=== PATIENT | female | born 1940 ===

== ENCOUNTER 2017-01-19 15:06 | Emergency (ER) | payer MEDICARE, OTHER ==
[2017-01-19 15:06] VITALS: BMI 38.9
[2017-01-19 15:15] VITALS: BP 114/56; PULSE 99; RESP 16; TEMP 98; O2SAT 100
[2017-01-19] MEDS ORDERED: Silver Sulfadiazine 1% CREAM (50 gm) TOP STA (15:36)
[2017-01-19] MEDS ORDERED: Silver Sulfadiazine 1% CREAM (50 gm) ONE (15:41)
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
== END 2017-01-19 15:59 | disposition home or self-care (01) ==
LOC: H.ER 15:06
DX: T23.152A Burn of first degree of left palm, initial encounter (principal); X15.0XXA Contact with hot stove (kitchen), initial encounter; Y93.G9 Activity, other involving cooking and grilling; Y92.000 Kitchen of unspecified non-institutional (private) residence as the place of occurrence of the external cause

== ENCOUNTER 2017-07-06 15:11 | Inpatient (IN) | payer MEDICARE, OTHER ==
[2017-07-06 15:11] VITALS: BMI 38.9
[2017-07-06] MEDS ORDERED: Albuterol-Ipratrop 3 mg / 0.5 (3 ml) UD INH STA (15:53)
--- NOTE | 2017-07-06 16:23 | ED PDOC ---
HPI: CCC, URI, Sore Throat Time Seen by Provider: 07/06/17 15:35 Chief Complaint (Nursing): Flu-like Symptoms Chief Complaint (Provider): Cough History Per: Patient History/Exam Limitations: no limitations Onset/Duration Of Symptoms: Days (x 2) Current Symptoms Are (Timing): Still Present Additional Complaint(s): Dafne is a 77 y/o female who presents to the ED complaining of dry cough, minimal runny nose, subjective fever, chills, body aches, headache, malaise, and fatigue that started on Friday. She has a history of asthma and reports using albuterol and tylenol for symptoms PMD: Dr. Panda Past Medical History Reviewed: Historical Data, Nursing Documentation, Vital Signs Vital Signs: Last Vital Signs Temp 98.9 F 07/06/17 15:17 Pulse 96 H 07/06/17 15:17 Resp 16 07/06/17 15:17 BP 149/91 H 07/06/17 15:17 Pulse Ox 94 L 07/06/17 20:10 - Medical History PMH: Arthritis, Asthma, Cardia Arrhythmia, Diabetes, Gastritis, HTN, Hypercholesterolemia, Rheumatoid Arthritis, Sleep Apnea (USES CPAP) Denies: HIV, Chronic Kidney Disease - Surgical History Surgical History: Appendectomy, Coronary Stent (11/2006 & 2009) Other surgeries: left partial mastectomy - Family History Family History: States: Diabetes, Hypertension - Social History Current smoker - smoking cessation education provided: No Alcohol: None Drugs: Denies - Immunization History Hx Tetanus Toxoid Vaccination: Yes (2 years ago) Hx Influenza Vaccination: No Hx Pneumococcal Vaccination: Yes (2 years) - Home Medications Home Medications: Ambulatory Orders Medication Instructions Recorded Aspirin [Ecotrin] 81 mg PO DAILY #0 tabec 01/13/16 Ciclopirox 0.77% [Loprox 0.77%] 1 appl TD BID #0 tube 01/13/16 Enalapril Maleate [Vasotec] 10 mg PO DAILY #0 tab 01/13/16 Glimepiride [amaRYL] 4 mg PO BID #0 tab 01/13/16 Insulin Aspart [Novolog] 60 unit SQ TID #0 cartridge 01/13/16 Insulin Detemir [Levemir] 80 units SC HS #0 vial 01/13/16 Montelukast [Singulair] 10 mg PO HS #0 tab 01/13/16 Albuterol 0.042% [Albuterol 0.042% 1 mg 04/03/16 Inhal Carlie (1.25mg/3ml) UD] Atenolol [Tenormin] 25 mg PO DAILY 04/03/16 Insulin Glargine, Recombina 80 units SQ DAILY 04/03/16 [Lantus] Insulin Lispro [humALOG] 40 units SQ TID 04/03/16 Lansoprazole [Prevacid] 30 mg PO 04/03/16 Cephalexin [Keflex] 1 tab PO TID #21 capsule 08/18/16 Lansoprazole [Prevacid] 30 mg PO DAILY 08/18/16 Silver Sulfadiazine [Silvadene] 25 gm TP DAILY #1 cream..g. 01/19/17 - Allergies Allergies/Adverse Reactions: Allergies Allergy/AdvReac Type Severity Reaction Status Date / Time iodine AdvReac RASH Verified 01/11/16 11:17 Review of Systems ROS Statement: Except As Marked, All Systems Reviewed And Found Negative Constitutional: Positive for: Fever (subjective), Chills, Weakness, Malaise, Other (fatigue, body aches) ENT: Positive for: Nose Discharge Respiratory: Positive for: Cough (dry) Neurological: Positive for: Headache Physical Exam - Reviewed Nursing Documentation Reviewed: Yes Vital Signs Reviewed: Yes - Physical Exam Appears: Positive for: Non-toxic, In Acute Distress Head Exam: Positive for: ATRAUMATIC, NORMOCEPHALIC Skin: Positive for: Warm, Dry Eye Exam: Positive for: EOMI ENT: Positive for: Other (dry mucus membranes). Negative for: Nasal Congestion , Pharyngeal Erythema, Tonsillar Exudate Neck: Positive for: Painless ROM, Supple Cardiovascular/Chest: Positive for: Regular Rate, Rhythm, Chest Non Tender. Negative for: Murmur Respiratory: Positive for: Wheezing, Respiratory Distress. Negative for: Rales , Rhonchi Gastrointestinal/Abdominal: Positive for: Soft. Negative for: Tenderness Back: Positive for: Normal Inspection. Negative for: Decreased ROM Extremity: Positive for: Normal ROM. Negative for: Pedal Edema, Deformity Lymphatic: Negative for: Adenopathy Neurologic/Psych: Positive for: Alert, Mood/Affect (anxious affect). Negative for: Motor/Sensory Deficits - Laboratory Results Result Diagrams: 07/06/17 16:33 07/06/17 16:33 - ECG O2 Sat by Pulse Oximetry: 94 (RA) Pulse Ox Interpretation: Normal Medical Decision Making Medical Decision Making: Time: 15:52 Initial Impression: Influenza-like symptoms, asthma exacerbation Differentials include pneumonia, bronchitis, viral syndrome, URI Initial Plan: --CMP --CBC --Chest XR --Albuterol --Solu-Medrol --Tamiflu --Blood Culture --Blood Glucose --Flu Swab Time: 16:37 CHEST XR FINDINGS: LUNGS: Mild bibasilar atelectasis. PLEURA: No significant pleural effusion identified. No pneumothorax apparent. CARDIOVASCULAR: Cardiomegaly. OSSEOUS STRUCTURES: Mild moderate multilevel no degenerative spondylosis of the thoracic spine VISUALIZED UPPER ABDOMEN: Normal. OTHER FINDINGS: Metallic clips left axillary region consistent with prior lymph node dissection again noted. IMPRESSION: No active disease. Time: 20:17 --Patient reports feeling a little better after tx. Continues to have diffuse wheeze, low peak flow, and hypoxia. --To be hospitalized for status asthmaticus --Discussed with Dr. Rivera, hospitalist, for patient's PMD Dr. Panda Scribe Attestation: Documented by Brad Lopez, acting as a scribe for Rachel Olivo MD Provider Scribe Attestation: All medical record entries made by the Scribe were at my direction and personally dictated by me. I have reviewed the chart and agree that the record accurately reflects my personal performance of the history, physical exam, medical decision making, and the department course for this patient. I have also personally directed, reviewed, and agree with the discharge instructions and disposition. Disposition - Clinical Impression Clinical Impression: Influenza-like symptoms, Asthma exacerbation - Patient ED Disposition Is Patient to be Admitted: Yes Discussed With : Maggi Rivera Doctor Will See Patient In The: Hospital Counseled Patient/Family Regarding: Studies Performed, Diagnosis, Need For Followup, Rx Given - Disposition Disposition Time: 20:17 - Pt Status Changed To: Hospital Disposition Of: Inpatient - Admit Certification Admit to Inpatient:: After my assessment, the patient will require hospitalization for at least two midnights. This is because of the severity of symptoms shown, intensity of services needed, and/or the medical risk in this patient being treated as an outpatient.
--- NOTE | 2017-07-06 16:39 | RAD ---
HISTORY: cough fever COMPARISON: Comparison chest dated 01/11/2016 TECHNIQUE: Chest PA and lateral FINDINGS: LUNGS: Mild bibasilar atelectasis. PLEURA: No significant pleural effusion identified. No pneumothorax apparent. CARDIOVASCULAR: Cardiomegaly. OSSEOUS STRUCTURES: Mild moderate multilevel no degenerative spondylosis of the thoracic spine VISUALIZED UPPER ABDOMEN: Normal. OTHER FINDINGS: Metallic clips left axillary region consistent with prior lymph node dissection again noted. IMPRESSION: No active disease.
[2017-07-06 16:53] LABS: BASO # 0.1 K/uL (0.0-0.2); BASO % 1.2 % (0.0-2.0); EOS % 0.1 % (0.0-4.0); LYMPH # 0.6 K/uL (1.0-4.3); MEAN CELL VOLUME 89.8 fl (81.0-99.0); MEAN CORPUSCULAR HEMOGLOBIN 30.6 pg (27.0-31.0); MEAN PLATELET VOLUME 9.1 fl (7.2-11.7); MONO % 19.5 % (0.0-10.0); NEUT # 3.5 K/uL (1.8-7.0); NEUT % 67.2 % (50.0-75.0); NRBC % 0.1 % (0.0-0.0); RBC 4.57 Mil/uL (3.80-5.20); RED CELL DISTRIBUTION WIDTH 13.7 % (11.5-14.5); WHITE BLOOD COUNT 5.2 K/uL (4.8-10.8)
[2017-07-06] MEDS ORDERED: Albuterol-Ipratrop 3 mg / 0.5 (3 ml) UD ONE ×2 (17:04→17:40)
[2017-07-06 17:12] LABS: ALBUMIN 3.8 g/dL (3.5-5.0); ALT/SGPT 37 U/L (9-52); AST/SGOT 35 U/L (14-36); BLOOD UREA NITROGEN 15 mg/dl (7-17); CALCIUM 9.4 mg/dL (8.4-10.2); GFR AFRICAN-AMERICAN > 60; GFR NON-AFRICAN AMERICAN > 60
[2017-07-06] MEDS ORDERED: Magnesium Sulfate 2 gm/50 ml 2 GM/50 ML BAG IVPB ONE (20:11)
--- NOTE | 2017-07-06 20:19 | CP.PCM.HP ---
History of Present Illness - History of Present Illness History of Present Illness: CC: Asthma exacerbation, not resolving with nebs/steroids HPI: This is a 77 y/o female with MHx significant for asthma, CAD, DM2, and HTN among other medical conditions who comes in with 2-3 days of URTI symptoms and exacerbation of her asthma. States symptoms started Friday with f/c, CHAVEZ, malaise /fatigue. She does not have bodyaches above her baseline at this time. She tried to use her inhaler at home, but it did not fully relieve her symptoms, so she came in. Arian CP. PCP: Farzad ROS: 14 systems reviewed, negative other than HPI MHx: Asthma, CAD, HTN, DM2, SARAI; L breast cancer in past SHx: L breast mastectomy Allergies: Iodine? Medications: Pending confirmation Family Hx: Reviewed, no relevant findings Social Hx: Lives alone, no tobocco, no EtOH Surrogate: Son, info on chart Present on Admission - Present on Admission Any Indicators Present on Admission: No Past Patient History - Infectious Disease Hx of Infectious Diseases: None - Tetanus Immunizations Tetanus Immunization: Unknown - Past Medical History & Family History Past Medical History?: Yes - Past Social History Alcohol: None Drugs: Denies - CARDIAC Hx Cardia Arrhythmia: Yes Hx Hypercholesterolemia: Yes Hx Hypertension: Yes - PULMONARY Hx Asthma: Yes Hx Sleep Apnea: Yes (USES CPAP) - NEUROLOGICAL Hx Neurological Disorder: No - HEENT Hx HEENT Problems: Yes Hx Cataracts: Yes - RENAL Hx Chronic Kidney Disease: No - HEMATOLOGICAL/ONCOLOGICAL Hx Human Immunodeficiency Virus (HIV): No - INTEGUMENTARY Hx Dermatological Problems: No - MUSCULOSKELETAL/RHEUMATOLOGICAL Hx Arthritis: Yes Hx Rheumatoid Arthritis: Yes - GASTROINTESTINAL Hx Gastritis: Yes - GENITOURINARY/GYNECOLOGICAL Hx Genitourinary Disorders: No - PSYCHIATRIC Hx Emotional Abuse: No Hx Physical Abuse: No Hx Substance Use: No - SURGICAL HISTORY Hx Appendectomy: Yes Hx Coronary Stent: Yes (11/2006 & 2009) - ANESTHESIA Hx Anesthesia: Yes Hx Anesthesia Reactions: No Hx Malignant Hyperthermia: No Meds Allergies/Adverse Reactions: Allergies Allergy/AdvReac Type Severity Reaction Status Date / Time iodine AdvReac RASH Verified 01/11/16 11:17 Physical Exam - Constitutional Appears: No Acute Distress - Head Exam Head Exam: ATRAUMATIC, NORMOCEPHALIC - Eye Exam Eye Exam: EOMI, PERRL - ENT Exam ENT Exam: Mucous Membranes Moist - Neck Exam Neck exam: Positive for: Full Rom - Respiratory Exam Respiratory Exam: Decreased Breath Sounds, Wheezes - Cardiovascular Exam Cardiovascular Exam: REGULAR RHYTHM, +S1, +S2 - GI/Abdominal Exam GI & Abdominal Exam: Normal Bowel Sounds, Soft - Extremities Exam Extremities exam: Positive for: full ROM, normal inspection - Neurological Exam Neurological exam: Alert, CN II-XII Intact, Oriented x3 - Psychiatric Exam Psychiatric exam: Normal Affect, Normal Mood - Skin Skin Exam: Dry, Warm Results - Vital Signs Recent Vital Signs: Last Vital Signs Temp 98.9 F 07/06/17 15:17 Pulse 96 H 07/06/17 15:17 Resp 16 07/06/17 15:17 BP 149/91 H 07/06/17 15:17 Pulse Ox 94 L 07/06/17 20:10 - Labs Result Diagrams: 07/06/17 16:33 07/06/17 16:33 Labs: Laboratory Results - last 24 hr 07/06/17 07/06/17 07/06/17 16:22 16:33 16:33 WBC 5.2 RBC 4.57 Hgb 14.0 Hct 41.0 MCV 89.8 MCH 30.6 MCHC 34.0 RDW 13.7 Plt Count 184 MPV 9.1 Neut % (Auto) 67.2 Lymph % (Auto) 12.0 L Gonzales % (Auto) 19.5 H Eos % (Auto) 0.1 Baso % (Auto) 1.2 Neut # 3.5 Lymph # 0.6 L Gonzales # 1.0 H Eos # 0.0 Baso # 0.1 Sodium 141 Potassium 3.9 Chloride 100 Carbon Dioxide 30 Anion Gap 15 BUN 15 Creatinine 0.9 Est GFR ( Amer) > 60 Est GFR (Non-Af Amer) > 60 POC Glucose (mg/dL) 149 H Random Glucose 165 H Calcium 9.4 Total Bilirubin 0.5 AST 35 ALT 37 Alkaline Phosphatase 70 Total Protein 7.5 Albumin 3.8 Globulin 3.7 Albumin/Globulin Ratio 1.0 Influenza Typ A,B (EIA) 07/06/17 16:33 WBC RBC Hgb Hct MCV MCH MCHC RDW Plt Count MPV Neut % (Auto) Lymph % (Auto) Gonzales % (Auto) Eos % (Auto) Baso % (Auto) Neut # Lymph # Gonzales # Eos # Baso # Sodium Potassium Chloride Carbon Dioxide Anion Gap BUN Creatinine Est GFR ( Amer) Est GFR (Non-Af Amer) POC Glucose (mg/dL) Random Glucose Calcium Total Bilirubin AST ALT Alkaline Phosphatase Total Protein Albumin Globulin Albumin/Globulin Ratio Influenza Typ A,B (EIA) Negative for flu a/b - Imaging and Cardiology Chest x-ray Status: Image reviewed by me (poor inspiration, no obvious infiltrates) Assessment & Plan (1) Asthma exacerbation Assessment and Plan: 77 y/o female with multiple medical conditions presenting with asthma exacerbation not improved with outpatient treatment. 1) Asthma -Continue scheduled/PRN duonebs -Continue IV steroids for now, will attempt to move to PO by tmrw -No abx or tamiflu for now as no positive findings 2) DM2 -DM2 diet -Accuchecks ACSH, SSI -Will continue Levemir, but only 40 U until the 80 U dose is confirmed -Cont glimeperide PO 3) CAD, HTN -- cont home medications 4) DVT PPx -- SCDs for now Status: Acute (2) DVT prophylaxis Status: Acute (3) CAD (coronary artery disease) Status: Chronic (4) DM type 2 (diabetes mellitus, type 2) Status: Chronic (5) HTN (hypertension) Status: Chronic
[2017-07-06] MEDS ORDERED: Insulin Detemir 100 Units/ml Inj SC SCH (22:00)
[2017-07-07] MEDS: Insulin Lispro (humaLOG) 100 Units/ml Inj SC SCH ×7 (00:49→21:34)
[2017-07-07 06:07] LABS: HEMOGLOBIN 13.9 g/dL (12.0-16.0); MEAN CELL VOLUME 92.3 fl (81.0-99.0); MEAN CORPUSCULAR HEMOGLOBIN 30.5 pg (27.0-31.0); MEAN CORPUSCULAR HGB CONC 33.1 g/dL (33.0-37.0); RBC 4.55 Mil/uL (3.80-5.20); RED CELL DISTRIBUTION WIDTH 13.8 % (11.5-14.5); WHITE BLOOD COUNT 5.4 K/uL (4.8-10.8)
[2017-07-07 06:32] LABS: BLOOD UREA NITROGEN 21 mg/dl (7-17); CALCIUM 9.1 mg/dL (8.4-10.2); GFR AFRICAN-AMERICAN > 60; GFR NON-AFRICAN AMERICAN > 60
[2017-07-07] MEDS: Albuterol-Ipratrop 3 mg / 0.5 (3 ml) UD INH SCH ×4 (07:30→19:20)
--- NOTE | 2017-07-07 08:47 | CP.PCM.PN ---
Subjective - Date & Time of Evaluation Date of Evaluation: 07/07/17 Time of Evaluation: 08:00 - Subjective Subjective: Patient was seen and examined bedside.Complaining of wheezing and SOB , coughing spells and clear sputum production. With O2 Sat 92 % on 3 L O2 via NC and dyspnea with minimal activity. Afebrile BP 144/49 HR 76 Accu 493 Objective - Vital Signs/Intake and Output Vital Signs (last 24 hours): Temp Pulse Resp BP Pulse Ox 97.9 F 76 18 144/49 L 92 L 07/07/17 08:00 07/07/17 08:00 07/07/17 08:00 07/07/17 08:00 07/07/17 08:00 Intake and Output: 07/07/17 07/07/17 06:59 18:59 Intake Total 200 Balance 200 - Medications Medications: Current Medications Albuterol/Ipratropium (Duoneb 3 Mg/0.5 Mg (3 Ml) Ud) 3 ml INH RQID [facility] Last Admin: 07/07/17 07:30 Dose: 3 ml Albuterol/Ipratropium (Duoneb 3 Mg/0.5 Mg (3 Ml) Ud) 3 ml INH RQ6 PRN PRN Reason: Shortness of Breath Aspirin (Ecotrin) 81 mg PO DAILY [facility] Atenolol (Tenormin) 25 mg PO DAILY [facility] Enalapril Maleate (Vasotec) 10 mg PO DAILY [facility] Insulin Detemir (Levemir) 40 units SC [facility] Last Admin: 07/07/17 00:39 Dose: 40 units Insulin Human Lispro (Humalog) 0 units SC [facility] PRN Reason: Protocol Last Admin: 07/07/17 06:40 Dose: 10 units Montelukast Sodium (Singulair) 10 mg PO [facility] Last Admin: 07/07/17 00:39 Dose: 10 mg Pantoprazole Sodium (Protonix Ec Tab) 40 mg PO DAILY [facility] - Labs Labs: 07/07/17 04:30 07/07/17 04:30 - Constitutional Appears: Non-toxic, Other (overweight in mild respiratory distress ) - Head Exam Head Exam: ATRAUMATIC, NORMAL INSPECTION, NORMOCEPHALIC - Eye Exam Eye Exam: EOMI, Normal appearance, PERRL Pupil Exam: NORMAL ACCOMODATION - ENT Exam ENT Exam: Mucous Membranes Moist, Normal Exam - Neck Exam Neck Exam: Normal Inspection - Respiratory Exam Respiratory Exam: Accessory Muscle Use, Rhonchi, Wheezes, Respiratory Distress - Cardiovascular Exam Cardiovascular Exam: REGULAR RHYTHM, RRR, +S1, +S2. absent: JVD - GI/Abdominal Exam GI & Abdominal Exam: Soft, Normal Bowel Sounds. absent: Distended, Guarding, Tenderness, Rebound - Rectal Exam Rectal Exam: Deferred - Extremities Exam Extremities Exam: Full ROM, Normal Capillary Refill, Normal Inspection. absent : Calf Tenderness, Pedal Edema - Back Exam Back Exam: NORMAL INSPECTION - Neurological Exam Neurological Exam: Alert, Awake, CN II-XII Intact, Oriented x3 - Psychiatric Exam Psychiatric exam: Normal Affect, Normal Mood - Skin Skin Exam: Dry, Intact, Normal Color, Warm Assessment and Plan - Assessment and Plan (Free Text) Assessment: 77 y/o female with PMHx significant for asthma, CAD, DM2,breast CA s/p left mastectomy ,sleep apnea apnea on CPAP at night and HTN came in with 2-3 days of URTI symptoms and exacerbation of her asthma. States symptoms started Friday with f/c, CHAVEZ, malaise/fatigue. She does not have bodyaches above her baseline at this time. She tried to use her inhaler at home, but it did not fully relieve her symptoms, so she came in. Denies CP. Patient at present with dyspnea with minimal exertion,wheezing , coughing spells . O2 Sat 92 % on 3 L O2 via NC 1. Asthma exacerbation still with wheezing, rhonchi and coughing spells Continue O2 via NC Will start Solumedrol 40 mg IV Q8 Duonebs RTC will start zithromax IV Influenza test nefgative. Will d/c Tamiflu 2. DM2 with hyperglycemia most likely uncontrolled due to steroids. Will jaguar asteroid off as soon as possible DM2 diet Accuchecks ACSH, SSI Endo consult with Dr. James Will continue Levemir 80 U Cont glimeperide PO 3. HTN controlled continue home medications 4. Sleep apnea CPAP at night Patient to bring her machine 5. Obesity BMI 37 6.CAD stable continue home meds 7.Hyperkalemia will treat with calcium gluconate, insulin , kayexalate 8. DVT PPx SCDs Lovenox
[2017-07-07] MEDS ORDERED: Patient's Own Med (Glimepiride [Amaryl] 4 MG) PO SCH (09:00)
[2017-07-07] MEDS ORDERED: Albuterol-Ipratrop 3 mg / 0.5 (3 ml) UD INH STA (09:04)
[2017-07-07] MEDS ORDERED: Calcium Gluconate 4.65 mEq/10 ml Inj IV ONE (09:05)
[2017-07-07] MEDS ORDERED: methylPREDNISolone 40 MG in Sodium Chloride 0.9% 50 ML IV SCH (09:15)
[2017-07-07] MEDS ORDERED: Sod Polystyrene Sulf 15 gm/60 ml Susp PO ONE (09:45)
[2017-07-07] MEDS: Pantoprazole 40 mg EC Tab PO SCH (10:11)
[2017-07-07] MEDS: MethylPREDNISolone 40 mg Vial IVP SCH ×2 (10:12→16:49)
[2017-07-07] MEDS ORDERED: Calcium Gluconate 4.6 MEQ in Sodium Chloride 0.9% 100 ML IV ONE (10:45)
[2017-07-07] MEDS: Enoxaparin 40 mg Syringe SC SCH (12:21)
[2017-07-07] MEDS: Azithromycin 500 MG in Sodium Chloride 0.9% 250 ML IVPB SCH (12:21)
[2017-07-07] MEDS: Insulin Detemir 100 Units/ml Inj SC SCH (21:33)
[2017-07-08] MEDS: MethylPREDNISolone 40 mg Vial IVP SCH ×3 (01:50→17:16)
[2017-07-08 06:17] LABS: CALCIUM 9.3 mg/dL (8.4-10.2)
[2017-07-08 07:11] LABS: HEMOGLOBIN 13.9 g/dL (12.0-16.0); MEAN CORPUSCULAR HEMOGLOBIN 30.4 pg (27.0-31.0); MEAN CORPUSCULAR HGB CONC 33.1 g/dL (33.0-37.0); RBC 4.58 Mil/uL (3.80-5.20); WHITE BLOOD COUNT 7.4 K/uL (4.8-10.8)
[2017-07-08] MEDS: Albuterol-Ipratrop 3 mg / 0.5 (3 ml) UD INH SCH ×4 (07:23→19:01)
--- NOTE | 2017-07-08 07:29 | CON ---
DATE: LOCATION: Room# 401. HISTORY OF PRESENT ILLNESS: This is a 77-year-old female with known history of type 2 insulin requiring diabetes, now being referred for diabetic evaluation and management and she presented here with acute exacerbation of COPD with status asthmaticus and started on IV steroid therapy with supervening hyperglycemic accelerations as expected thereof. PAST MEDICAL HISTORY As mentioned above, history of type 2 insulin-requiring diabetes, on a combination of Humalog given as 40 units t.i.d. before meals and Lantus taken as 80 units at bedtime with also, Lantus taken as 40 units at 10:00 a.m. daily as given. She also has oral hypoglycemic medications, using Amaryl given as 4 mg b.i.d. as noted. History of hypertensive cardiovascular disease and dyslipidemia, history of obstructive sleep apnea, history of chronic bronchial asthma with underlying COPD. She also has obstructive sleep apnea as mentioned. There is also significant history of coronary artery disease with previous coronary stent placement done twice, history of diabetic retinopathy and polyneuropathy with painful lower extremity paresthesias, history of peripheral arterial disease and vasculopathy. There is also significant history of a prior left breast mastectomy for breast carcinoma and did receive also postoperative chemotherapy and radiation. FAMILY HISTORY Positive for diabetes and hypertension. SOCIAL HISTORY The patient has supportive family. No known substance use. REVIEW OF SYSTEMS As mentioned above, admits to generalized body weakness with easy fatigability, tiredness and increasing hypersomnolence and lethargy. Also, admits to dizziness and lightheadedness, worse on the day of admission. Also, admits to bifrontal headaches with visual blurring as noted. No chest pains, but admits to progressive shortness of breath initially on exertion and then at rest with associated productive cough and pleuritic chest pains in the left lower chest wall area. Her oral intake has been variable with nausea, dyspepsia and vague upper abdominal pains. Also, admits to marked polyuria, nocturia, polydipsia with a picture of constipation. Also, admits to lower extremity painful paresthesias, especially nocturnally. PHYSICAL EXAMINATION GENERAL: This is an obese female in no apparent distress. VITAL SIGNS: Blood pressure of 150/90, pulse of 100 beats per minute and regular, temperature 99, respirations 20, height is 5 feet 3 inches, weight is 210 pounds. HEENT: Head normocephalic. Eyes anicteric with pink conjunctivae. Funduscopy is not possible at this time. Ears, nose, and throat, otherwise, normal. NECK: Supple. Thyroid gland is normal in size. No carotid bruits or cervical adenopathy. CARDIOPULMONARY: Some adynamic precordium. S1, S2 is rapid and regular. LUNGS: Shows scattered rhonchi and bilateral expiratory wheezing as noted. ABDOMEN: Obese, soft with positive bowel sounds. EXTREMITIES: No peripheral edema. Pulses are +2 bilaterally. LABORATORY DATA: Her chemistry showed initial BUN of 15, sodium 141, potassium 3.9, chloride 100, CO2 30, glucose 165, creatinine 0.9. The subsequent glucose done today showed a level of 493 mg/dL. Her subsequent glucose levels also done today showed glucose levels ranging from 424 to 438 and over 500 mg/dL. ASSESSMENT: This is a 77-year-old female with uncontrolled and decompensated type 2 insulin requiring diabetes presenting here with marked hyperglycemic accelerations related to the intercurrent IV steroid therapy related to the increased insulin resistance expected thereof from the IV steroids as given. Moreover, she also has significant history of very poor metabolic control of her diabetic condition despite a basal and bolus insulin regimen as given on the outpatient with associated underlying morbid obesity, which contributes also to the increased insulin resistance thereof. She also has diabetic microvascular complications of retinopathy and polyneuropathy with diabetic macrovascular complications of coronary artery disease and peripheral arterial disease and vasculopathy. Plan of management as discussed with the patient and staff. We will modify her current insulin regimen and increase her basal and bolus insulin dosing to override the increased insulin resistance thereof. We will add Levemir given as 40 units subcu daily every 10:00 a.m. as ordered. We will add Levemir given as 80 units subcu at bedtime daily as given. Moreover, we will add Humalog given as 30 units subcu t.i.d. before meals as given. We will modify the coverage scale to obviate hypoglycemia and detailed orders have been given. We will obtain serial chemistries and supplement accordingly as needed. We will also obtain a hemoglobin A1c to confirm her prior poor glycemic control. We will obtain serial chemistries and supplement accordingly as needed. We will follow up. Charlotte James MD
[2017-07-08] MEDS ORDERED: Insulin Detemir 100 Units/ml Inj SC SCH (09:00)
[2017-07-08] MEDS: Enoxaparin 40 mg Syringe SC SCH (10:12)
[2017-07-08] MEDS: Pantoprazole 40 mg EC Tab PO SCH (10:14)
[2017-07-08] MEDS: Insulin Lispro (humaLOG) 100 Units/ml Inj SC SCH ×7 (10:15→22:21)
[2017-07-08] MEDS: Azithromycin 500 MG in Sodium Chloride 0.9% 250 ML IVPB SCH (10:19)
--- NOTE | 2017-07-08 18:02 | CP.PCM.PN ---
Subjective - Date & Time of Evaluation Date of Evaluation: 07/08/17 Time of Evaluation: 14:00 - Subjective Subjective: Patient seen and examined bedside. Still complaining of dyspnea with minimal exertion , wheezing , coughing spells but unable to expectorate. Complaining of dysuria BP labile and accuchecks elevated > 400 Objective - Vital Signs/Intake and Output Vital Signs (last 24 hours): Temp Pulse Resp BP Pulse Ox 98.2 F 77 14 135/72 94 L 07/08/17 16:19 07/08/17 16:19 07/08/17 16:19 07/08/17 16:19 07/08/17 16:19 - Medications Medications: Current Medications Albuterol/Ipratropium (Duoneb 3 Mg/0.5 Mg (3 Ml) Ud) 3 ml INH RQID [facility] Last Admin: 07/08/17 15:39 Dose: 3 ml Albuterol/Ipratropium (Duoneb 3 Mg/0.5 Mg (3 Ml) Ud) 3 ml INH RQ6 PRN PRN Reason: Shortness of Breath Aspirin (Ecotrin) 81 mg PO DAILY [facility] Last Admin: 07/08/17 10:13 Dose: 81 mg Atenolol (Tenormin) 25 mg PO DAILY [facility] Last Admin: 07/08/17 10:14 Dose: Not Given Enalapril Maleate (Vasotec) 10 mg PO DAILY [facility] Last Admin: 07/08/17 10:14 Dose: 10 mg Enoxaparin Sodium (Lovenox) 40 mg SC DAILY [facility] PRN Reason: Protocol Last Admin: 07/08/17 10:12 Dose: 40 mg Guaifenesin (Robitussin) 100 mg PO Q6 PRN PRN Reason: Cough Azithromycin 500 mg/ Sodium (Chloride) 250 mls @ 250 mls/hr IVPB DAILY [facility] PRN Reason: Protocol Last Admin: 07/08/17 10:19 Dose: 250 mls/hr Insulin Detemir (Levemir) 80 units SC HS [facility] Last Admin: 07/07/17 21:33 Dose: 80 units Insulin Detemir (Levemir) 40 units SC DAILY [facility] Last Admin: 07/08/17 13:11 Dose: 40 u Insulin Human Lispro (Humalog) 0 units SC ACHS [facility] PRN Reason: Protocol Last Admin: 07/08/17 17:18 Dose: Not Given Insulin Human Lispro (Humalog) 40 units SC AC [facility] Last Admin: 07/08/17 17:17 Dose: 40 u Methylprednisolone (Solu-Medrol) 40 mg IVP Q8 [facility] Last Admin: 07/08/17 17:16 Dose: 40 mg Montelukast Sodium (Singulair) 10 mg PO HS [facility] Last Admin: 07/07/17 21:33 Dose: 10 mg Pantoprazole Sodium (Protonix Ec Tab) 40 mg PO DAILY [facility] Last Admin: 07/08/17 10:14 Dose: 40 mg - Labs Labs: 07/08/17 04:25 07/08/17 04:25 - Constitutional Appears: Non-toxic, Chronically Ill, Other (obese ) - Head Exam Head Exam: ATRAUMATIC, NORMAL INSPECTION, NORMOCEPHALIC - Eye Exam Eye Exam: EOMI, Normal appearance, PERRL Pupil Exam: NORMAL ACCOMODATION - ENT Exam ENT Exam: Mucous Membranes Moist, Normal Exam - Neck Exam Neck Exam: Normal Inspection - Respiratory Exam Respiratory Exam: Accessory Muscle Use, Prolonged Expiratory Phase, Rhonchi, Wheezes - Cardiovascular Exam Cardiovascular Exam: REGULAR RHYTHM, +S1, +S2. absent: JVD Additional comments: left mastectomy - GI/Abdominal Exam GI & Abdominal Exam: Soft, Normal Bowel Sounds. absent: Distended, Guarding, Rebound - Rectal Exam Rectal Exam: Deferred - Extremities Exam Extremities Exam: Full ROM, Normal Capillary Refill, Normal Inspection. absent : Pedal Edema - Back Exam Back Exam: NORMAL INSPECTION - Neurological Exam Neurological Exam: Alert, Awake, CN II-XII Intact, Oriented x3 - Psychiatric Exam Psychiatric exam: Normal Affect - Skin Skin Exam: Dry, Normal Color, Warm Assessment and Plan - Assessment and Plan (Free Text) Assessment: 77 y/o female with PMHx significant for asthma, CAD, DM2,breast CA s/p left mastectomy ,sleep apnea on CPAP at night and HTN came in with 2-3 days of URTI symptoms and exacerbation of her asthma. States symptoms started Friday with f/c, CHAVEZ, malaise/fatigue. . She tried to use her inhaler at home, but it did not fully relieve her symptoms, so she came in. Denies CP. Patient at present still with wheezing and dyspnea with minimal exertion,wet coughing spells but unable to expectorate . Accu elevated > 400 1. Asthma exacerbation Today still with wheezing, rhonchi coughing spells , unable to expectorate and dyspnea Continue O2 via NC Continue Solumedrol 40 mg IV Q8 Duonebs RTC, zithromax IV and Mucinex Influenza test negative. 2. DM2 with hyperglycemia and vascular complications most likely uncontrolled due to steroids. Endo consulted . Strated on levemir 40 units SQ in AM and continue Levemir 80 unit SQ HS. Started Humalog 30 unit sSQ TID Continue Glimepiride, accuchecks, insulin coverage , diet Follow up Hgb A1c 3. HTN labile continue home medications 4. Sleep apnea CPAP at night Patient to bring her machine 5. Obesity BMI 37 6.CAD stable continue home meds 7.Hyperkalemia treated with calcium gluconate, insulin , kayexalate 8. Dysuria check UA to rule out UTI Start Rocephin empirically 9. DVT PPx SCDs Lovenox
[2017-07-08] MEDS: Insulin Detemir 100 Units/ml Inj SC SCH (22:22)
--- NOTE | 2017-07-08 23:19 | PN ---
DATE: ENDOCRINOLOGY FOLLOWUP NOTE LOCATION: Room 401. SUBJECTIVE: This is a 77-year-old female with recent uncontrolled type 2 insulin-requiring diabetes with marked hyperglycemic accelerations related to the intercurrent IV steroid therapy as expected thereof. She presented here with acute exacerbation of asthmatic bronchitis and with underlying COPD as noted. Her glycemic levels are fluctuating today ranging from 369-462 mg/dL. It was 433 at bedtime last night. The latest chemistry showed a BUN of 30, sodium 138, potassium 5.4, chloride 94, CO2 of 28, glucose 419 and creatinine 1.1. ASSESSMENT: This is a 77-year-old female with uncontrolled and decompensated type 2 insulin-requiring diabetes with marked hyperglycemic accelerations related to the increased insulin resistance from the intercurrent IV steroid therapy as temporarily given for management of status asthmaticus with underlying chronic obstructive pulmonary disease. PLAN OF MANAGEMENT: As discussed with the patient and staff, we will modify once again her basal and bolus insulin regimen and add basal insulin also in the morning with Levemir given as 20 units subcu every 10:00 a.m. daily and continue the basal insulin at bedtime with Levemir given as 80 units subcu at bedtime daily as given. We will increase the Humalog given for mealtimes at a dose of 40 units subcu t.i.d. before meals to start at dinnertime today as ordered. We will continue the low-dose correction scale using Humalog insulin as given. We will titrate incrementally as indicated to optimize metabolic control. We will obtain serial chemistries and supplement accordingly as needed. We will follow. Charlotte James MD
[2017-07-08] MEDS: guaiFENesin 100 mg/5 ml Syrup UD PO PRN (23:42)
[2017-07-09] MEDS: MethylPREDNISolone 40 mg Vial IVP SCH ×3 (01:20→17:30)
[2017-07-09 02:22] LABS: SQUAMOUS EPITHIAL < 1 /hpf (0-5); URINE BILIRUBIN NEGATIVE (NEGATIVE); URINE BLOOD MODERATE (NEGATIVE); URINE CLARITY CLEAR (Clear); URINE COLOR YELLOW (YELLOW); URINE GLUCOSE (UA) >=500 mg/dL (Normal); URINE LEUKOCYTE ESTERASE NEG Leu/uL (Negative); URINE NITRATE NEGATIVE (NEGATIVE); URINE PROTEIN 30 mg/dL (NEGATIVE); URINE UROBILINOGEN 0.2-1.0 mg/dL (0.2-1.0)
[2017-07-09] MEDS: guaiFENesin 100 mg/5 ml Syrup UD PO PRN (04:37)
[2017-07-09] MEDS: Albuterol-Ipratrop 3 mg / 0.5 (3 ml) UD INH PRN (04:52)
[2017-07-09 06:56] LABS: HEMOGLOBIN 14.4 g/dL (12.0-16.0); MEAN CELL VOLUME 91.3 fl (81.0-99.0); MEAN CORPUSCULAR HEMOGLOBIN 30.3 pg (27.0-31.0); MEAN CORPUSCULAR HGB CONC 33.2 g/dL (33.0-37.0); RBC 4.76 Mil/uL (3.80-5.20); RED CELL DISTRIBUTION WIDTH 13.6 % (11.5-14.5); WHITE BLOOD COUNT 9.9 K/uL (4.8-10.8)
[2017-07-09 07:21] LABS: T4 4.81 ug/dl (5.5-11.0)
[2017-07-09 07:35] LABS: ALBUMIN 3.8 g/dL (3.5-5.0); CALCIUM 9.4 mg/dL (8.4-10.2)
[2017-07-09] MEDS: Albuterol-Ipratrop 3 mg / 0.5 (3 ml) UD INH SCH ×4 (08:26→19:11)
[2017-07-09] MEDS: Insulin Lispro (humaLOG) 100 Units/ml Inj SC SCH ×7 (08:43→21:37)
[2017-07-09] MEDS: Insulin Detemir 100 Units/ml Inj SC SCH ×3 (08:44→21:39)
[2017-07-09] MEDS: Pantoprazole 40 mg EC Tab PO SCH (08:45)
[2017-07-09] MEDS: Enoxaparin 40 mg Syringe SC SCH (08:45)
[2017-07-09] MEDS: Azithromycin 500 MG in Sodium Chloride 0.9% 250 ML IVPB SCH (08:47)
--- NOTE | 2017-07-09 13:27 | PN ---
DATE: LOCATION: Room 401. This is a 77-year-old female with recent uncontrolled type 2 insulin-requiring diabetes presenting here with progressive shortness of breath and evaluated to be in status asthmaticus with underlying COPD and is now being followed closely for metabolic management. She developed hyperglycemic accelerations with the initiation of IV steroid therapy and associated increased insulin resistance and hyperglycemic accelerations thereof. Her glucose levels are ranging from 294 to 319 mg/dL overnight as noted. The latest chemistry showed a BUN of 30. Sodium 138, potassium 5.4, chloride 99, CO2 28, glucose 419, and creatinine 1.1 so at this time, we will modify once again her basal and bolus insulin regimen and increase the Humalog to 40 units subcu t.i.d. before meals to start today as ordered. We will also increase the Levemir to 50 units subcu every 10:00 a.m. daily, to start this morning as ordered and we will continue the Levemir given as 80 units subcu at bedtime daily to be given tonight as ordered. We will continue the low-dose correction scale using Humalog insulin as given. We will obtain serial chemistries and supplement accordingly as needed. We will follow. Charlotte James MD
--- NOTE | 2017-07-09 19:43 | CP.PCM.PN ---
Subjective - Date & Time of Evaluation Date of Evaluation: 07/09/17 Time of Evaluation: 11:00 - Subjective Subjective: Patient seen bedside.Still complaining of dyspnea, wheezing and coughing spells. Was able to expectorate small amount of yellowish sputum today. With SOB especially with coughing spells Accuchecks still elevated > 300 Objective - Vital Signs/Intake and Output Vital Signs (last 24 hours): Temp Pulse Resp BP Pulse Ox 97.4 F L 83 20 164/70 H 94 L 07/09/17 17:02 07/09/17 17:02 07/09/17 17:02 07/09/17 17:02 07/09/17 17:02 Intake and Output: 07/09/17 07/10/17 18:59 06:59 Intake Total 1800 Balance 1800 - Medications Medications: Current Medications Albuterol/Ipratropium (Duoneb 3 Mg/0.5 Mg (3 Ml) Ud) 3 ml INH RQID [facility] Last Admin: 07/09/17 19:11 Dose: 3 ml Albuterol/Ipratropium (Duoneb 3 Mg/0.5 Mg (3 Ml) Ud) 3 ml INH RQ6 PRN PRN Reason: Shortness of Breath Last Admin: 07/09/17 04:52 Dose: 3 ml Amlodipine Besylate (Norvasc) 5 mg PO DAILY [facility] Aspirin (Ecotrin) 81 mg PO DAILY [facility] Last Admin: 07/09/17 08:43 Dose: 81 mg Atenolol (Tenormin) 25 mg PO DAILY [facility] Last Admin: 07/09/17 08:49 Dose: Not Given Atorvastatin Calcium (Lipitor) 40 mg PO HS [facility] Enalapril Maleate (Vasotec) 10 mg PO DAILY [facility] Last Admin: 07/09/17 08:46 Dose: 10 mg Enoxaparin Sodium (Lovenox) 40 mg SC DAILY [facility] PRN Reason: Protocol Last Admin: 07/09/17 08:45 Dose: 40 mg Guaifenesin (Robitussin) 100 mg PO Q6 PRN PRN Reason: Cough Last Admin: 07/09/17 04:37 Dose: 100 mg Azithromycin 500 mg/ Sodium (Chloride) 250 mls @ 250 mls/hr IVPB DAILY [facility] PRN Reason: Protocol Last Admin: 07/09/17 08:47 Dose: 250 mls/hr Ceftriaxone Sodium 1 gm/ (Sodium Chloride) 50 mls @ 50 mls/hr IVPB DAILY [facility] PRN Reason: Protocol Last Admin: 07/09/17 08:45 Dose: 50 mls/hr Methylprednisolone 30 mg/ (Sodium Chloride) 50 mls @ 100 mls/hr IVPB Q8 [facility] Insulin Detemir (Levemir) 80 units SC HS [facility] Last Admin: 07/08/17 22:22 Dose: 80 units Insulin Detemir (Levemir) 50 units SC DAILY [facility] Last Admin: 07/09/17 08:51 Dose: Not Given Insulin Human Lispro (Humalog) 0 units SC ACHS [facility] PRN Reason: Protocol Last Admin: 07/09/17 18:00 Dose: 5 u Insulin Human Lispro (Humalog) 40 units SC AC [facility] Last Admin: 07/09/17 17:30 Dose: 40 u Montelukast Sodium (Singulair) 10 mg PO HS [facility] Last Admin: 07/08/17 22:19 Dose: 10 mg Pantoprazole Sodium (Protonix Ec Tab) 40 mg PO DAILY [facility] Last Admin: 07/09/17 08:45 Dose: 40 mg - Labs Labs: 07/09/17 04:45 07/09/17 04:45 - Constitutional Appears: Chronically Ill, Other (obese ) - Head Exam Head Exam: ATRAUMATIC, NORMAL INSPECTION, NORMOCEPHALIC - Eye Exam Eye Exam: EOMI, Normal appearance, PERRL Pupil Exam: NORMAL ACCOMODATION - ENT Exam ENT Exam: Mucous Membranes Moist, Normal Exam - Neck Exam Neck Exam: Full ROM, Normal Inspection - Respiratory Exam Respiratory Exam: Prolonged Expiratory Phase, Rhonchi, Wheezes, Respiratory Distress - Cardiovascular Exam Cardiovascular Exam: REGULAR RHYTHM, RRR, +S1, +S2. absent: JVD - GI/Abdominal Exam GI & Abdominal Exam: Soft, Normal Bowel Sounds. absent: Distended, Guarding, Tenderness, Rebound - Rectal Exam Rectal Exam: Deferred - Extremities Exam Extremities Exam: Full ROM, Normal Capillary Refill, Normal Inspection. absent : Pedal Edema - Back Exam Back Exam: NORMAL INSPECTION - Neurological Exam Neurological Exam: Alert, Awake, CN II-XII Intact, Oriented x3 - Psychiatric Exam Psychiatric exam: Normal Affect - Skin Skin Exam: Dry, Normal Color, Warm Assessment and Plan - Assessment and Plan (Free Text) Assessment: 77 y/o female with PMHx significant for asthma, CAD, DM2,breast CA s/p left mastectomy ,sleep apnea on CPAP at night and HTN came in with 2-3 days of URTI symptoms and exacerbation of her asthma. States symptoms started Friday with f/c, CHAVEZ, malaise/fatigue. She tried to use her inhaler at home, but it did not fully relieve her symptoms, so she came in. Denies CP. Patient at present still with wheezing and dyspnea with minimal exertion,wet coughing spells expectorating small amount of yellowish sputum Accu elevated > 300 LIpd profile elevated 1. Asthma exacerbation / ascute bronchitis Today still with wheezing, rhonchi coughing spells , expectorating small amount of yellowish sputum today Continue O2 via [place] jaguar Solumedrol to 30 mg IV Q8 Duonebs RTC, zithromax IV, rocephin and Mucinex Influenza test negative. 2. DM2 with hyperglycemia and vascular complications most likely uncontrolled due to steroids. Endo consulted . Started on levemir 50 units SQ in AM and continue Levemir 80 unit SQ HS. Increased Humalog to 40 units AC Continue Glimepiride, accuchecks, insulin coverage , diet Hgb A1c 9 3. Dyslipidemia Start Atorvastatin 40 mg po HS 4. HTN labile continue home medications Atyenolo, Enalapril start Norvasc 5 mg po QD 5. Sleep apnea CPAP at night Patient to bring her machine 6. Obesity BMI 37 7.CAD stable continue home meds 8.Hyperkalemia treated with calcium gluconate, insulin , kayexalate 9. Dysuria UA showed no bacteria no WBC UTI ruled out 10. DVT PPx SCDs Lovenox
[2017-07-09] MEDS ORDERED: methylPREDNISolone 30 MG in Sodium Chloride 0.9% 50 ML IVPB SCH (19:45)
[2017-07-10] MEDS: MethylPREDNISolone 40 mg Vial IVP SCH ×4 (00:16→17:52)
[2017-07-10] MEDS: Albuterol-Ipratrop 3 mg / 0.5 (3 ml) UD INH PRN (02:30)
[2017-07-10] MEDS: guaiFENesin 100 mg/5 ml Syrup UD PO PRN (02:30)
[2017-07-10 05:31] LABS: HEMOGLOBIN 14.3 g/dL (12.0-16.0); MEAN CELL VOLUME 91.5 fl (81.0-99.0); MEAN CORPUSCULAR HGB CONC 32.9 g/dL (33.0-37.0); RBC 4.75 Mil/uL (3.80-5.20); RED CELL DISTRIBUTION WIDTH 13.3 % (11.5-14.5); WHITE BLOOD COUNT 8.2 K/uL (4.8-10.8)
[2017-07-10 05:34] LABS: BLOOD UREA NITROGEN 29 mg/dl (7-17); CALCIUM 9.3 mg/dL (8.4-10.2); GFR AFRICAN-AMERICAN > 60; GFR NON-AFRICAN AMERICAN > 60
[2017-07-10] MEDS: Albuterol-Ipratrop 3 mg / 0.5 (3 ml) UD INH SCH ×4 (07:54→20:16)
[2017-07-10] MEDS: Insulin Lispro (humaLOG) 100 Units/ml Inj SC SCH ×9 (08:57→22:16)
[2017-07-10] MEDS: Insulin Detemir 100 Units/ml Inj SC SCH ×2 (09:16→22:14)
[2017-07-10] MEDS: Enoxaparin 40 mg Syringe SC SCH (09:17)
[2017-07-10] MEDS: Pantoprazole 40 mg EC Tab PO SCH (09:19)
--- NOTE | 2017-07-10 11:16 | CP.PCM.PN ---
Subjective - Date & Time of Evaluation Date of Evaluation: 07/10/17 Time of Evaluation: 09:45 - Subjective Subjective: No fever still with some wheezing coughing spells some SOB when she gets coughing spells no CP no abd pain refuses to go to [facility] Objective - Vital Signs/Intake and Output Vital Signs (last 24 hours): Temp Pulse Resp BP Pulse Ox 97.8 F 63 18 143/72 94 L 07/10/17 08:00 07/10/17 09:20 07/10/17 08:00 07/10/17 09:20 07/10/17 08:00 - Medications Medications: Current Medications Albuterol/Ipratropium (Duoneb 3 Mg/0.5 Mg (3 Ml) Ud) 3 ml INH RQID [facility] Last Admin: 07/10/17 07:54 Dose: 3 ml Albuterol/Ipratropium (Duoneb 3 Mg/0.5 Mg (3 Ml) Ud) 3 ml INH RQ6 PRN PRN Reason: Shortness of Breath Last Admin: 07/10/17 02:30 Dose: 3 ml Amlodipine Besylate (Norvasc) 10 mg PO DAILY [facility] Last Admin: 07/10/17 09:18 Dose: 10 mg Aspirin (Ecotrin) 81 mg PO DAILY [facility] Last Admin: 07/10/17 09:14 Dose: 81 mg Atenolol (Tenormin) 25 mg PO DAILY [facility] Last Admin: 07/10/17 09:20 Dose: 25 mg Atorvastatin Calcium (Lipitor) 40 mg PO HS [facility] Last Admin: 07/09/17 21:41 Dose: 40 mg Enalapril Maleate (Vasotec) 10 mg PO DAILY [facility] Last Admin: 07/10/17 09:20 Dose: 10 mg Enoxaparin Sodium (Lovenox) 40 mg SC DAILY [facility] PRN Reason: Protocol Last Admin: 07/10/17 09:17 Dose: 40 mg Guaifenesin (Robitussin) 100 mg PO Q6 PRN PRN Reason: Cough Last Admin: 07/10/17 02:30 Dose: 100 mg Azithromycin 500 mg/ Sodium (Chloride) 250 mls @ 250 mls/hr IVPB DAILY [facility] PRN Reason: Protocol Last Admin: 07/09/17 08:47 Dose: 250 mls/hr Ceftriaxone Sodium 1 gm/ (Sodium Chloride) 50 mls @ 50 mls/hr IVPB DAILY [facility] PRN Reason: Protocol Last Admin: 07/10/17 09:19 Dose: 50 mls/hr Insulin Detemir (Levemir) 80 units SC HS [facility] Last Admin: 07/09/17 21:39 Dose: 80 units Insulin Detemir (Levemir) 50 units SC DAILY [facility] Last Admin: 07/10/17 09:16 Dose: 50 unit Insulin Human Lispro (Humalog) 0 units SC ACHS [facility] PRN Reason: Protocol Last Admin: 07/10/17 09:15 Dose: Not Given Insulin Human Lispro (Humalog) 40 units SC AC [facility] Last Admin: 07/10/17 09:15 Dose: 40 u Methylprednisolone (Solu-Medrol) 30 mg IVP Q8 [facility] Last Admin: 07/10/17 09:14 Dose: 30 mg Montelukast Sodium (Singulair) 10 mg PO [facility] Last Admin: 07/09/17 21:41 Dose: 10 mg Pantoprazole Sodium (Protonix Ec Tab) 40 mg PO DAILY [facility] Last Admin: 07/10/17 09:19 Dose: 40 mg - Labs Labs: 07/10/17 04:15 07/10/17 04:15 - Constitutional Appears: No Acute Distress, Chronically Ill - Head Exam Head Exam: ATRAUMATIC, NORMAL INSPECTION, NORMOCEPHALIC - Eye Exam Eye Exam: EOMI, Normal appearance Pupil Exam: NORMAL ACCOMODATION - ENT Exam ENT Exam: Mucous Membranes Moist, Normal External Ear Exam - Neck Exam Neck Exam: Full ROM. absent: Meningismus - Respiratory Exam Respiratory Exam: Rales, Rhonchi, Wheezes, NORMAL BREATHING PATTERN. absent: Respiratory Distress - Cardiovascular Exam Cardiovascular Exam: REGULAR RHYTHM, +S1, +S2 - GI/Abdominal Exam GI & Abdominal Exam: Soft, Normal Bowel Sounds. absent: Tenderness - Extremities Exam Extremities Exam: absent: Calf Tenderness - Back Exam Back Exam: Full ROM. absent: CVA tenderness (L), CVA tenderness (R) - Neurological Exam Neurological Exam: Alert, Awake, CN II-XII Intact, Oriented x3 Neuro motor strength exam: Left Upper Extremity: 5, Right Upper Extremity: 5, Left Lower Extremity: 5, Right Lower Extremity: 5 - Psychiatric Exam Psychiatric exam: Normal Affect, Normal Mood - Skin Skin Exam: Dry, Normal Color, Warm Assessment and Plan - Assessment and Plan (Free Text) Assessment: 77 y/o female with PMHx significant for asthma, CAD, DM2,breast CA s/p left mastectomy ,sleep apnea on CPAP at night and HTN came in with 2-3 days of URTI symptoms and exacerbation of her asthma. States symptoms started Friday with f/c, CHAVEZ, malaise/fatigue. She tried to use her inhaler at home, but it did not fully relieve her symptoms, so she came in. Denies CP. Patient at present still with wheezing and dyspnea with minimal exertion,wet coughing spells expectorating small amount of yellowish sputum Accu elevated > 300 LIpd profile elevated 1. Asthma exacerbation / acute bronchitis still with wheezing, still with coughing spells Continue O2 via [place] taper Solumedrol to 20 mg IV Q8 cont Duonebs RTC, zithromax IV, rocephin and Mucinex add Tessalon perles TID Influenza test negative. Pulm consult - Dr Sanders 2. DM2 with hyperglycemia and vascular complications most likely uncontrolled due to steroids. Endo consulted . Started on levemir 50 units SQ in AM and continue Levemir 80 unit SQ HS. Increased Humalog to 40 units AC Continue accuchecks, insulin coverage , diet Hgb A1c 9 start Glucotrol 5 mg XL 3. Dyslipidemia cont Atorvastatin 40 mg po HS 4. HTN labile continue home medications Atenolol d/c Enalapril and change to Diovan - in case cough is sec to MICHAEL inh Increase Norvasc 10 mg po QD 5. Sleep apnea CPAP at night Patient to bring her machine 6. Obesity BMI 37 7.CAD stable continue home meds 8.Hyperkalemia treated with calcium gluconate, insulin , kayexalate 9. Dysuria UA showed no bacteria no WBC UTI ruled out 10. DVT PPx SCDs Lovenox
[2017-07-10] MEDS: Azithromycin 500 MG in Sodium Chloride 0.9% 250 ML IVPB SCH (13:03)
--- NOTE | 2017-07-10 13:51 | RAD ---
PROCEDURE: CHEST RADIOGRAPH, 1 VIEW HISTORY: r/o pneumonia COMPARISON: Chest radiograph dated 07/06/2017. FINDINGS: LUNGS: Stable chronic prominence of the bilateral interstitial markings. No focal consolidation. PLEURA: No pneumothorax or pleural fluid seen. CARDIOVASCULAR: Atherosclerotic aortic calcifications. Cardiomediastinal silhouette stably prominent. OSSEOUS STRUCTURES: Unchanged. VISUALIZED UPPER ABDOMEN: Normal. OTHER FINDINGS: None. IMPRESSION: No active disease.
[2017-07-10] MEDS: GlipiZIDE 5 mg SR Tab PO SCH (16:23)
[2017-07-11] MEDS: MethylPREDNISolone 40 mg Vial IVP SCH ×3 (00:34→16:27)
[2017-07-11] MEDS: Insulin Lispro (humaLOG) 100 Units/ml Inj SC SCH ×6 (06:44→19:05)
[2017-07-11] MEDS: guaiFENesin 100 mg/5 ml Syrup UD PO PRN (07:06)
[2017-07-11] MEDS: Albuterol-Ipratrop 3 mg / 0.5 (3 ml) UD INH SCH ×4 (08:02→19:41)
--- NOTE | 2017-07-11 08:26 | PN ---
DATE: ENDOCRINOLOGY FOLLOWUP NOTE LOCATION: In room 401. SUBJECTIVE: This is a 77-year-old female presenting here with status asthmaticus and underlying exacerbation of bronchial asthma and COPD and is now being followed closely for metabolic management. She is still on IV steroid therapy being tapered down and currently on Solu-Medrol given as 30 mg IV piggyback every 8 hours as noted. Her glycemic levels are fluctuating, but improved and the glucose values have range from 273 to 275 and 350 mg/dL. Her latest chemistry showed a BUN of 29, sodium 138, potassium 4.3, chloride 100, CO2 of 28, glucose 295, and creatinine 0.9. So at this time, we will continue the same high dose basal and bolus insulin regimen to allow for dose equilibration and keep her on the Levemir given as 50 units subcu every morning and 80 units subcu at bedtime daily as ordered. We will also continue the Humalog given as 40 units subcu t.i.d. before meals as given. We will continue the low-dose correction scale using Humalog insulin as ordered. We will titrate incrementally as indicated to optimize metabolic control. We will follow and advise according. Charlotte James MD
[2017-07-11] MEDS: Enoxaparin 40 mg Syringe SC SCH (09:15)
[2017-07-11] MEDS: Insulin Detemir 100 Units/ml Inj SC SCH (09:15)
[2017-07-11] MEDS: Pantoprazole 40 mg EC Tab PO SCH (09:15)
[2017-07-11] MEDS: GlipiZIDE 5 mg SR Tab PO SCH (09:15)
[2017-07-11] MEDS: Azithromycin 500 MG in Sodium Chloride 0.9% 250 ML IVPB SCH (09:21)
[2017-07-11 15:48] VITALS: RESP 20
[2017-07-11 18:52] VITALS: BP 158/76; PULSE 93; TEMP 98.2; O2SAT 98
--- NOTE | 2017-07-11 19:52 | CP.PCM.DIS ---
Provider - Provider Date of Admission: 07/08/17 17:57 Attending physician: Maggi Rivera MD Primary care physician: Dr Panda Consults: Pulm: DR Sanders Endo: DR James Time Spent in preparation of Discharge (in minutes): 25 Diagnosis - Discharge Diagnosis (1) Asthma exacerbation Status: Acute (2) Acute bronchitis Status: Acute (3) CAD (coronary artery disease) Status: Chronic (4) DM type 2 (diabetes mellitus, type 2) Status: Chronic (5) HTN (hypertension) Status: Chronic (6) Sleep apnea Status: Chronic Hospital Course - Lab Results Lab Results: Micro Results 07/06/17 18:38 Blood-Venous Blood Culture - Final NO GROWTH AFTER 5 DAYS 07/06/17 18:38 Blood-Venous Gram Stain - Final TEST NOT PERFORMED 07/06/17 18:38 Blood-Venous Blood Culture - Final NO GROWTH AFTER 5 DAYS 07/06/17 18:38 Blood-Venous Gram Stain - Final TEST NOT PERFORMED Most Recent Lab Values WBC 8.2 K/uL (4.8-10.8) 07/10/17 04:15 RBC 4.75 Mil/uL (3.80-5.20) 07/10/17 04:15 Hgb 14.3 g/dL (12.0-16.0) 07/10/17 04:15 Hct 43.4 % (34.0-47.0) 07/10/17 04:15 MCV 91.5 fl (81.0-99.0) 07/10/17 04:15 MCH 30.0 pg (27.0-31.0) 07/10/17 04:15 MCHC 32.9 g/dL (33.0-37.0) L 07/10/17 04:15 RDW 13.3 % (11.5-14.5) 07/10/17 04:15 Plt Count 217 K/uL (130-400) 07/10/17 04:15 MPV 9.1 fl (7.2-11.7) 07/06/17 16:33 Neut % (Auto) 67.2 % (50.0-75.0) 07/06/17 16:33 Lymph % (Auto) 12.0 % (20.0-40.0) L 07/06/17 16:33 [place] % (Auto) 19.5 % (0.0-10.0) H 07/06/17 16:33 Eos % (Auto) 0.1 % (0.0-4.0) 07/06/17 16:33 Baso % (Auto) 1.2 % (0.0-2.0) 07/06/17 16:33 Neut # 3.5 K/uL (1.8-7.0) 07/06/17 16:33 Lymph # 0.6 K/uL (1.0-4.3) L 07/06/17 16:33 [place] # 1.0 K/uL (0.0-0.8) H 07/06/17 16:33 Eos # 0.0 K/uL (0.0-0.7) 07/06/17 16:33 Baso # 0.1 K/uL (0.0-0.2) 07/06/17 16:33 Sodium 138 mmol/l (132-148) 07/10/17 04:15 Potassium 4.3 MMOL/L (3.6-5.0) 07/10/17 04:15 Chloride 100 mmol/L (98-107) 07/10/17 04:15 Carbon Dioxide 28 mmol/L (22-30) 07/10/17 04:15 Anion Gap 14 (10-20) 07/10/17 04:15 BUN 29 mg/dl (7-17) H 07/10/17 04:15 Creatinine 0.9 mg/dl (0.7-1.2) 07/10/17 04:15 Est GFR ( Amer) > 60 07/10/17 04:15 Est GFR (Non-Af Amer) > 60 07/10/17 04:15 POC Glucose (mg/dL) 133 mg/dL (65-110) H 07/11/17 15:42 Random Glucose 295 mg/dL (65-105) H 07/10/17 04:15 Hemoglobin A1c 9.9 % (4.2-6.5) H 07/09/17 04:45 Calcium 9.3 mg/dL (8.4-10.2) 07/10/17 04:15 Total Bilirubin 0.5 mg/dl (0.2-1.3) 07/09/17 04:45 AST 65 U/L (14-36) H D 07/09/17 04:45 ALT 62 U/L (9-52) H D 07/09/17 04:45 Alkaline Phosphatase 62 U/L (38-126) 07/09/17 04:45 Total Protein 7.5 G/DL (6.3-8.2) 07/09/17 04:45 Albumin 3.8 g/dL (3.5-5.0) 07/09/17 04:45 Globulin 3.7 gm/dL (2.2-3.9) 07/09/17 04:45 Albumin/Globulin Ratio 1.0 (1.0-2.1) 07/09/17 04:45 Triglycerides 173 mg/DL (0-149) H D 07/09/17 04:45 Cholesterol 244 mg/dL (0-199) H 07/09/17 04:45 LDL Cholesterol Direct 170 mg/dL (0-129) H 07/09/17 04:45 HDL Cholesterol 38 MG/DL (30-70) 07/09/17 04:45 Thyroxine (T4) 4.81 ug/dl (5.5-11.0) L 07/09/17 04:45 TSH 3rd Generation 0.29 mIU/ML (0.46-4.68) L 07/09/17 04:45 Urine Color Yellow (YELLOW) 07/09/17 02:05 Urine Clarity Clear (Clear) 07/09/17 02:05 Urine pH 5.0 (5.0-8.0) 07/09/17 02:05 Ur Specific [place] 1.027 (1.003-1.030) 07/09/17 02:05 Urine Protein 30 mg/dL (NEGATIVE) 07/09/17 02:05 Urine Glucose (UA) >=500 mg/dL (Normal) 07/09/17 02:05 Urine Ketones Negative mg/dL (NEGATIVE) 07/09/17 02:05 Urine Blood Moderate (NEGATIVE) 07/09/17 02:05 Urine Nitrate Negative (NEGATIVE) 07/09/17 02:05 Urine Bilirubin Negative (NEGATIVE) 07/09/17 02:05 Urine Urobilinogen 0.2-1.0 mg/dL (0.2-1.0) 07/09/17 02:05 Ur Leukocyte Esterase Neg Selene/uL (Negative) 07/09/17 02:05 Urine RBC (Auto) < 1 /hpf (0-3) 07/09/17 02:05 Urine Microscopic WBC < 1 /hpf (0-5) 07/09/17 02:05 Ur Squamous Epith Cells < 1 /hpf (0-5) 07/09/17 02:05 Urine Creatinine 80 mg/dL (20-320) 07/09/17 02:00 Urine Microalbumin 23.8 mg/dL 07/09/17 02:00 Microalb/Creat Ratio 297 (<30) H 07/09/17 02:00 Influenza Typ A,B (EIA) Negative for flu a/b (NEGATIVE) 07/06/17 16:33 - Hospital Course Hospital Course: 77 y/o female with PMHx significant for asthma, CAD, DM2,breast CA s/p left mastectomy ,sleep apnea on CPAP at night and HTN came in with 2-3 days of URTI symptoms and exacerbation of her asthma. She tried to use her inhaler at home, but it did not fully relieve her symptoms, so she came in. Arian CP. CXDR : negative. Pt was admitted to [facility] , started on IV Solumedrol and IV antibiotics, and Duoneb treatments. Pulmonary consulted. Her symptoms improved . 1. Asthma exacerbation / acute bronchitis Tapered IV Solumedrol - will d/c on PO Medrol Received Duonebs RTC, zithromax IV, rocephin and Mucinex Tessalon perles TID Influenza test negative. Pulm consult - Dr Sanders 2. DM2 with hyperglycemia and vascular complications most likely uncontrolled due to steroids. Endo consulted . Started on levemir 50 units SQ in AM and continue Levemir 80 unit SQ HS. Increased Humalog to 40 units AC Continue accuchecks, insulin coverage , diet Hgb A1c 9 3. Dyslipidemia cont Atorvastatin 40 mg po HS 4. HTN labile continue home medications Atenolol d/c Enalapril and change to Diovan - in case cough is sec to MICHAEL inh Increased Norvasc 10 mg po QD 5. Sleep apnea CPAP at night 6. Obesity BMI 37 7.CAD stable continue home meds 8.Hyperkalemia treated with calcium gluconate, insulin , kayexalate 9. Dysuria UA showed no bacteria no WBC UTI ruled out 10. DVT PPx SCDs Lovenox Discharge Exam - Head Exam Head Exam: ATRAUMATIC, NORMAL INSPECTION, NORMOCEPHALIC - Eye Exam Eye Exam: EOMI, Normal appearance Pupil Exam: NORMAL ACCOMODATION - ENT Exam ENT Exam: Mucous Membranes Moist, Normal External Ear Exam - Neck Exam Neck exam: Full Rom - Respiratory Exam Respiratory Exam: Rhonchi, NORMAL BREATHING PATTERN. absent: Rales, Wheezes, Respiratory Distress - Cardiovascular Exam Cardiovascular Exam: REGULAR RHYTHM, +S1, +S2 - GI/Abdominal Exam GI & Abdominal Exam: Normal Bowel Sounds, Soft. absent: Tenderness - Extremities Exam Extremities exam: full ROM, normal capillary refill, pedal pulses present Additional comments: no calf tenderness - Back Exam Back exam: FULL ROM. absent: CVA tenderness (L), CVA tenderness (R) - Neurological Exam Neurological exam: Alert, CN II-XII Intact, Oriented x3, Reflexes Normal - Psychiatric Exam Psychiatric exam: Normal Affect, Normal Mood - Skin Skin Exam: Dry, Normal Color, Warm Discharge Plan - Discharge Medications Prescriptions: Albuterol/Ipratropium [Duoneb 3 mg/0.5 mg (3 ml) UD] 3 ml INH RQ6 PRN #100 neb PRN Reason: Shortness Of Breath amLODIPine [Norvasc] 10 mg PO DAILY #30 tab Atorvastatin [Lipitor] 40 mg PO HS #30 tab Benzonatate [Tessalon Perles] 100 mg PO TID #30 sgl hydroCHLOROthiazide [Microzide] 12.5 mg PO DAILY #30 cap Insulin Detemir [Levemir] 50 units SC DAILY #10 vial Insulin Detemir [Levemir] 80 units SC HS #10 vial Valsartan [Diovan] 160 mg PO DAILY #30 tab - Follow Up Plan Condition: GOOD Disposition: HOME/ ROUTINE Instructions: Asthma (DC), Influenza (DC) Additional Instructions: follow up with in 7-10 days ff up with Dr Sanders ff up with Dr Kenneth Palumbo RN, Home PT [facility] visiting nurse [phone] Referrals: Jean-Paul Panda [Staff Provider] -
--- NOTE | 2017-07-11 19:58 | PN ---
DATE: ENDOCRINOLOGY FOLLOWUP NOTE LOCATION: Room 401. SUBJECTIVE: This is a 77-year-old female with recent uncontrolled type 2 insulin-requiring diabetes, now being followed closely for metabolic management. Her glycemic levels are still fluctuating with the intercurrent IV steroids as given. Her glucose levels today ranged from 285 to 363 mg/dL. It was 438 at bedtime last night. The latest chemistry showed a BUN of 29, sodium 138, potassium 4.3, chloride 100, CO2 of 28, glucose 295, and creatinine 0.9. So, at this time, we will continue the same basal and bolus insulin regimen, given as a very effective dose of Levemir at 50 units every morning and 80 units at bedtime as ordered. We will continue the Humalog, given as 40 units subcutaneously t.i.d. before meals as given. We will titrate incrementally as indicated to optimize metabolic control. We will follow and advise accordingly. Charlotte James MD
== END 2017-07-11 23:00 | disposition home health service (06) | DRG 192 ==
LOC: H.ER 15:11 → H.ERHOLD 20:15 → H.TEL 23:06 → OBSVTOIN 07-08 17:57
PROVIDERS: ADMIT Internal Medicine; ATTEND Internal Medicine
PROC: 3E0F73Z Introduction of Anti-inflammatory into Respiratory Tract, Via Natural or Artificial Opening (ICD-10-PCS; principal; 2017-07-08)
DX: J44.1 Chronic obstructive pulmonary disease with (acute) exacerbation (principal); J44.0 Chronic obstructive pulmonary disease with (acute) lower respiratory infection; J20.9 Acute bronchitis, unspecified; R09.02 Hypoxemia; E87.5 Hyperkalemia; E11.42 Type 2 diabetes mellitus with diabetic polyneuropathy; E11.51 Type 2 diabetes mellitus with diabetic peripheral angiopathy without gangrene; E11.319 Type 2 diabetes mellitus with unspecified diabetic retinopathy without macular edema; E11.65 Type 2 diabetes mellitus with hyperglycemia; E66.01 Morbid (severe) obesity due to excess calories; Z68.37 Body mass index [BMI] 37.0-37.9, adult; I25.10 Atherosclerotic heart disease of native coronary artery without angina pectoris; G47.33 Obstructive sleep apnea (adult) (pediatric); E78.5 Hyperlipidemia, unspecified; I11.9 Hypertensive heart disease without heart failure; M06.9 Rheumatoid arthritis, unspecified; M19.90 Unspecified osteoarthritis, unspecified site; Z85.3 Personal history of malignant neoplasm of breast; Z91.041 Radiographic dye allergy status; Z95.5 Presence of coronary angioplasty implant and graft; Z90.12 Acquired absence of left breast and nipple; Z79.4 Long term (current) use of insulin; Z79.82 Long term (current) use of aspirin

== ENCOUNTER 2017-08-24 16:33 | Emergency (ER) | payer MEDICARE, OTHER ==
[2017-08-24 16:34] VITALS: BMI 38.9
[2017-08-24 16:41] VITALS: PULSE 76; RESP 20; TEMP 97.8; O2SAT 98
--- NOTE | 2017-08-24 17:12 | ED PDOC ---
Upper Extremity Pain/Injury Time Seen by Provider: 08/24/17 17:05 Chief Complaint (Nursing): Upper Extremity Problem/Injury History Per: Patient History/Exam Limitations: no limitations Onset/Duration Of Symptoms: Days Current Symptoms Are (Timing): Still Present Quality: Burning Exacerbating Factor(s): Nothing Additional Complaint(s): 77 y/o female, whose PMH includes Hypertension and diabetes, who presents to the ED complaining of a blister on her right 3rd digit since 8 days ago. Patient reports burning her finger which developed into a blister filled with blood. 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 Patient denies fever, vomiting, shortness of breath, or other complaints. Past Medical History Reviewed: Historical Data, Nursing Documentation, Vital Signs Vital Signs: Last Vital Signs Temp 97.8 F 08/24/17 16:36 Pulse 76 08/24/17 16:36 Resp 20 08/24/17 16:36 BP Pulse Ox 98 08/24/17 16:36 - Medical History PMH: Arthritis, Asthma, Cardia Arrhythmia, Diabetes, Gastritis, HTN, Hypercholesterolemia, Rheumatoid Arthritis, Sleep Apnea (USES CPAP) Denies: HIV, Chronic Kidney Disease - Surgical History Surgical History: Appendectomy, Coronary Stent (11/2006 & 2009) - Family History Family History: States: Diabetes, Hypertension - Immunization History Hx Tetanus Toxoid Vaccination: Yes (2 years ago) Hx Influenza Vaccination: No Hx Pneumococcal Vaccination: Yes (2 years) - Home Medications Home Medications: Ambulatory Orders Medication Instructions Recorded Aspirin [Ecotrin] 81 mg PO DAILY #0 tabec 01/13/16 Ciclopirox 0.77% [Loprox 0.77%] 1 appl TD BID #0 tube 01/13/16 Glimepiride [amaRYL] 4 mg PO BID #0 tab 01/13/16 Insulin Aspart [Novolog] 60 unit SQ TID #0 cartridge 01/13/16 Atenolol [Tenormin] 25 mg PO DAILY 04/03/16 Lansoprazole [Prevacid] 30 mg PO 04/03/16 Albuterol/Ipratropium [Duoneb 3 3 ml INH RQ6 PRN #100 neb 07/11/17 mg/0.5 mg (3 ml) UD] Albuterol/Ipratropium [Duoneb 3 3 ml INH RQID neb 07/11/17 mg/0.5 mg (3 ml) UD] Atorvastatin [Lipitor] 40 mg PO HS #30 tab 07/11/17 Benzonatate [Tessalon Perles] 100 mg PO TID #30 sgl 07/11/17 Insulin Detemir [Levemir] 50 units SC DAILY #10 vial 07/11/17 Insulin Detemir [Levemir] 80 units SC HS #10 vial 07/11/17 Methylprednisolone [Medrol Dose 4 mg PO ASDIR #21 mg 07/11/17 Pack (21 tabs)] Montelukast Sodium [Singulair] 10 mg PO DAILY #30 tablet 07/11/17 Valsartan [Diovan] 160 mg PO DAILY #30 tab 07/11/17 amLODIPine [Norvasc] 10 mg PO DAILY #30 tab 07/11/17 hydroCHLOROthiazide [Microzide] 12.5 mg PO DAILY #30 cap 07/11/17 Bacitracin Ointment [Bacitracin] 0.5 gm TOP BID #1 tube 08/24/17 Cephalexin [Keflex] 500 mg PO TID #15 capsule 08/24/17 - Allergies Allergies/Adverse Reactions: Allergies Allergy/AdvReac Type Severity Reaction Status Date / Time iodine AdvReac RASH Verified 08/24/17 16:41 Review of Systems ROS Statement: Except As Marked, All Systems Reviewed And Found Negative Constitutional: Negative for: Fever Respiratory: Negative for: Shortness of Breath Musculoskeletal: Positive for: Hand Pain (blister on right 3rd digit) Physical Exam - Reviewed Nursing Documentation Reviewed: Yes Vital Signs Reviewed: Yes - Physical Exam Appears: Positive for: Well, Non-toxic, No Acute Distress Head Exam: Positive for: ATRAUMATIC, NORMAL INSPECTION, NORMOCEPHALIC Skin: Positive for: Normal Color, Warm, DRY Eye Exam: Positive for: EOMI, Normal appearance, PERRL Extremity: Positive for: Normal ROM, Capillary Refill, Other (distal 3rd digit blister. dry blood noted under blister. ). Negative for: Tenderness, Deformity Neurologic/Psych: Positive for: Alert, it software engineer II-XII, Oriented - ECG O2 Sat by Pulse Oximetry: 98 (room air) Pulse Ox Interpretation: Normal Medical Decision Making Medical Decision Making: Progress Notes: Dry blood was noted under blister. Blister debrided and Bacitracin was applied. Scribe Attestation: Nimco Robert MD Scribe Attestation: All medical record entries made by the Scribe were at my direction and personally dictated by me. I have reviewed the chart and agree that the record accurately reflects my personal performance of the history, physical exam, medical decision making, and the department course for this patient. I have also personally directed, reviewed, and agree with the discharge instructions and disposition. Disposition - Clinical Impression Clinical Impression: Burn - Patient ED Disposition Is Patient to be Admitted: No - Disposition Referrals: Don Álvarez MD [Staff Provider] - Disposition: Routine/Home Disposition Time: 17:06 Condition: GOOD Prescriptions: Bacitracin Ointment [Bacitracin] 0.5 gm TOP BID #1 tube Cephalexin [Keflex] 500 mg PO TID #15 capsule Instructions: [facility] [place] Forms: [facility] (Faroese) - PA / ARC AIR OPERATOR / Resident Statement MD/DO has examined the patient and agrees with the treatment plan.
== END 2017-08-24 17:16 | disposition home or self-care (01) ==
LOC: H.ER 16:33
DX: T23.221A Burn of second degree of single right finger (nail) except thumb, initial encounter (principal); T79.9XXA Unspecified early complication of trauma, initial encounter; X08.8XXA Exposure to other specified smoke, fire and flames, initial encounter; E11.9 Type 2 diabetes mellitus without complications; I10 Essential (primary) hypertension; J45.909 Unspecified asthma, uncomplicated; Z79.82 Long term (current) use of aspirin; Z95.5 Presence of coronary angioplasty implant and graft; Z79.4 Long term (current) use of insulin

== ENCOUNTER 2018-02-01 18:15 | Observation (INO) | payer MEDICARE, MEDICAID ==
[2018-02-01 18:16] VITALS: BMI 38.9
[2018-02-01] MEDS ORDERED: Albuterol-Ipratrop 3 mg / 0.5 (3 ml) UD INH STA (18:56)
--- NOTE | 2018-02-01 18:59 | ED PDOC ---
HPI: Chest Pain Time Seen by Provider: 02/01/18 18:32 Chief Complaint (Nursing): Shortness Of Breath Chief Complaint (Provider): chest pain History Per: Patient History/Exam Limitations: no limitations Onset/Duration Of Symptoms: Hrs (10) Current Symptoms Are (Timing): Intermittent Episodes Severity: Moderate Quality: Tightness, "Pain" Associated Symptoms: Dyspnea (mild), Diaphoresis. denies: Nausea, Syncope Modifying Factors: None Exacerbating Factors: None Alleviating Factors: None Additional Complaint(s): 77yo female presents c/o chest pain which she awoke with this morning, lasted about an hour then resolved. Returned again prior to lunch, left sided and "pressure" radiating to the back. Self- resolved. Returned a third time about an hour prior to arrival, this time associated with some sweating and mild dyspnea. States used nebulizer today without improvement and symptoms are somewhat different than normal asthmatic symptoms- states had a cough and wheeze about a week ago but that's since resolved. Denies edema, orthopnea, fever or current cough. Past Medical History Reviewed: Historical Data, Nursing Documentation, Vital Signs Vital Signs: Last Vital Signs Temp 98.7 F 02/01/18 22:48 Pulse 60 02/01/18 22:48 Resp 22 02/01/18 22:48 BP 130/52 L 02/01/18 22:48 Pulse Ox 96 02/01/18 22:48 - Medical History PMH: Arthritis, Asthma, Cardia Arrhythmia, Diabetes, Gastritis, HTN, Hypercholesterolemia, Rheumatoid Arthritis, Sleep Apnea (USES CPAP) Denies: HIV, Chronic Kidney Disease - Surgical History Surgical History: Appendectomy, Coronary Stent (11/2006 & 2009) - Family History Family History: States: Diabetes, Hypertension - Living Arrangements Living Arrangements: With Family - Social History Current smoker - smoking cessation education provided: No - Immunization History Hx Tetanus Toxoid Vaccination: Yes (2 years ago) Hx Influenza Vaccination: No Hx Pneumococcal Vaccination: Yes (2 years) - Home Medications Home Medications: Ambulatory Orders Medication Instructions Recorded Glimepiride [amaRYL] 4 mg PO BID #0 tab 01/13/16 Atenolol [Tenormin] 25 mg PO DAILY 04/03/16 Albuterol/Ipratropium [Duoneb 3 3 ml INH RQ6 PRN #100 neb 07/11/17 mg/0.5 mg (3 ml) UD] Albuterol/Ipratropium [Duoneb 3 3 ml INH RQID neb 07/11/17 mg/0.5 mg (3 ml) UD] Albuterol Sulfate [Proair Hfa] 2 inh INH Q4 PRN 02/01/18 Enalapril Maleate [Vasotec] 10 mg PO DAILY 02/01/18 Insulin Glargine,Hum.rec.anlog 50 units SQ HS 02/01/18 [Lantus] Insulin Lispro [Humalog Kwikpen 42 units SQ TID 02/01/18 U-100] Omeprazole [Omeprazole] 40 mg PO DAILY 02/01/18 - Allergies Allergies/Adverse Reactions: Allergies Allergy/AdvReac Type Severity Reaction Status Date / Time iodine AdvReac RASH Verified 08/24/17 16:41 Review of Systems ROS Statement: Except As Marked, All Systems Reviewed And Found Negative Constitutional: Negative for: Fever Cardiovascular: Positive for: Chest Pain, Palpitations. Negative for: Orthopnea , Edema, Light Headedness Respiratory: Positive for: Shortness of Breath. Negative for: Cough, SOB with Exertion, Wheezing Gastrointestinal: Negative for: Abdominal Pain Genitourinary Female: Negative for: Dysuria Musculoskeletal: Positive for: Back Pain. Negative for: Neck Pain, Arm Pain, Leg Pain Skin: Negative for: Rash, Lesions, Jaundice Neurological: Negative for: Weakness, Numbness, Headache Psych: Negative for: Depression Physical Exam - Reviewed Nursing Documentation Reviewed: Yes Vital Signs Reviewed: Yes - Physical Exam Appears: Positive for: Well, Non-toxic, No Acute Distress Head Exam: Positive for: ATRAUMATIC, NORMAL INSPECTION, NORMOCEPHALIC Skin: Positive for: Normal Color, Warm, DRY Eye Exam: Positive for: EOMI, Normal appearance, PERRL ENT: Positive for: Normal ENT Inspection Neck: Positive for: Normal, Painless ROM Cardiovascular/Chest: Positive for: Regular Rate, Rhythm Respiratory: Positive for: Decreased Breath Sounds (mildly diminished b/l). Negative for: Wheezing, Respiratory Distress Pulses-Radial (L): 3+/4+ Pulses-Radial (R): 3+/4+ Gastrointestinal/Abdominal: Positive for: Soft. Negative for: Tenderness, Guarding Back: Positive for: Normal Inspection Extremity: Positive for: Normal ROM. Negative for: Tenderness, Calf Tenderness , Swelling Neurologic/Psych: Positive for: Alert, Oriented. Negative for: Motor/Sensory Deficits, Aphasia - Laboratory Results Result Diagrams: 02/01/18 18:57 02/01/18 18:57 - ECG ECG: Positive for: Interpreted By Me ECG Rhythm: Positive for: Normal ST Segment, Sinus Rhythm, Nonspecific Changes Interpretation Of Abn EKG: L axis deviation Rate: 67 O2 Sat by Pulse Oximetry: 99 Pulse Ox Interpretation: Normal Medical Decision Making Medical Decision Making: workup for chest pain in 77yo F w multiple risk factors including prior CAD. Patient semi poor historian, unaware of stents but per old chart has had prior intervention. Dr Kenneth spaulding awaiting call back. labs reviewed trop neg video editor normal admit obs dr kenyon hospitalist for workup and monitoring. she denies recent cardiac dynamic testing. Disposition - Clinical Impression Clinical Impression: Chest pain - Patient ED Disposition Is Patient to be Admitted: Yes - Disposition Disposition Time: 20:15 Condition: FAIR - Pt Status Changed To: Hospital Disposition Of: Observation - POA Present On Arrival: None
[2018-02-01 19:01] LABS: BASO % 0.2 % (0.0-2.0); EOS # 0.2 K/uL (0.0-0.7); HEMOGLOBIN 14.4 g/dL (12.0-16.0); LYMPH # 2.3 K/uL (1.0-4.3); LYMPH % 29.5 % (20.0-40.0); MEAN CELL VOLUME 91.7 fl (81.0-99.0); MEAN CORPUSCULAR HEMOGLOBIN 31.2 pg (27.0-31.0); MEAN PLATELET VOLUME 9.4 fl (7.2-11.7); MONO # 0.6 K/uL (0.0-0.8); MONO % 7.5 % (0.0-10.0); NEUT # 4.7 K/uL (1.8-7.0); NEUT % 60.8 % (50.0-75.0); RBC 4.62 Mil/uL (3.80-5.20); RED CELL DISTRIBUTION WIDTH 13.5 % (11.5-14.5); WHITE BLOOD COUNT 7.8 K/uL (4.8-10.8)
[2018-02-01] MEDS ORDERED: Albuterol-Ipratrop 3 mg / 0.5 (3 ml) UD ONE (19:03)
[2018-02-01 19:10] LABS: ALB/GLOB RATIO 1.2 (1.0-2.1); ALBUMIN 4.1 g/dL (3.5-5.0); ALT/SGPT 32 U/L (9-52); AST/SGOT 25 U/L (14-36); BLOOD UREA NITROGEN 17 mg/dl (7-17); CALCIUM 9.5 mg/dL (8.4-10.2); GFR NON-AFRICAN AMERICAN > 60
[2018-02-01 19:20] LABS: PROTHROMBIN TIME 11.5 Seconds (9.8-13.1)
[2018-02-01 19:21] LABS: B-TYPE NATRIURETIC PEPTIDE 164 pg/ml (0-900)
[2018-02-01 19:22] LABS: PARTIAL THROMBOPLASTIN TIME 29.1 Seconds (25.6-37.1)
--- NOTE | 2018-02-01 20:45 | CP.PCM.HP ---
History of Present Illness - History of Present Illness History of Present Illness: PMD: Jean-Paul Panda MD Illuminator: Marlo Pond MD Chief Complaint: Chest Pain The patient was seen and examined in the ED HPI: The Hx is obtained from the patient and after review of the medical records. She is a 77 years old female with hx of Left Breast Cancer s/p Mastectomy, DM II, HTN, CAD with coronary stents who comes referring left side chest pain an getting out of bed this AM, lasting one hour. The pain was relieved spontaneously but returned at rest at lunch time. This also was relieved spontaneously. The pain again returned at rest one hour before coming to the ED. The is dull,located below the left breast, radiating to the Back and not relieved with bronchodilators. It is associated with mild SOB and diaphoresis. No dizziness, palpitation, abdominal pain, diarrhea nor urinary symptoms. PMH: Breast cancer; Rheumatoid Arthritis; asthmv; Cardiac arrhythmia; Gastritis ; HTN; HLD; Sleep apnea( last used CPAP 2months ago); DM II; Cataract PSH: Appendectomy; Coronary Stent (11/2006 & 2009?); Left partial mastectomy with chemotherapy;Hysterectomy; Bladder surgery SH: Former smoker; No Alcohol use; No illegal drug use; Live with SON FH: Significant for HTN and DM Allergies: Iodine Medication: Reviewed Present on Admission - Present on Admission Any Indicators Present on Admission: Yes History of DVT/PE: No History of Uncontrolled Diabetes: Yes Urinary Catheter: No Decubitus Ulcer Present: No Review of Systems - Constitutional Constitutional: absent: Chills, Fatigue, Fever, Headache - EENT Eyes: Requires Corrective Lenses. absent: Blurred Vision, Diplopia, Floaters Ears: absent: Decreased Hearing, Ear Discharge, Tinnitus Nose/Mouth/Throat: absent: Nasal Congestion, Nasal Discharge, Sinus Pain, Sinus Pressure - Cardiovascular Cardiovascular: Chest Pain, Dyspnea, Leg Edema - Respiratory Respiratory: Cough, Dyspnea. absent: Wheezing, Stridor, Chest Congestion - Gastrointestinal Gastrointestinal: Abdominal Pain, Constipation. absent: Diarrhea, Nausea, Vomiting - Genitourinary Genitourinary: absent: Dysuria, Flank Pain, Urinary Frequency - Musculoskeletal Musculoskeletal: Arthralgias, Back Pain. absent: Muscle Weakness - Integumentary Integumentary: Swelling. absent: Pruritus, Rash, Skin Ulcer, Sores, Striae - Neurological Neurological: absent: Confusion, Dizziness, Focal Weakness, Headaches, Weakness - Psychiatric Psychiatric: absent: Anxiety, Depression, Panic Attacks - Endocrine Endocrine: absent: Palpitations, Polydipsia, Polyphagia, Polyuria - Hematologic/Lymphatic Hematologic: absent: Easy Bleeding, Easy Bruising Past Patient History - Infectious Disease Hx of Infectious Diseases: None - Tetanus Immunizations Tetanus Immunization: Unknown - Past Medical History & Family History Past Medical History?: Yes - Past Social History Smoking Status: Former Smoker Chewing Tobacco Use: No Cigar Use: No Alcohol: None Drugs: Denies Home Situation {Lives}: With Family - CARDIAC Hx Cardia Arrhythmia: Yes Hx Hypercholesterolemia: Yes Hx Hypertension: Yes - PULMONARY Hx Asthma: Yes Hx Sleep Apnea: Yes (USES CPAP) - NEUROLOGICAL Hx Neurological Disorder: No - HEENT Hx HEENT Problems: Yes Hx Cataracts: Yes - RENAL Hx Chronic Kidney Disease: No - HEMATOLOGICAL/ONCOLOGICAL Hx Human Immunodeficiency Virus (HIV): No - INTEGUMENTARY Hx Dermatological Problems: No - MUSCULOSKELETAL/RHEUMATOLOGICAL Hx Arthritis: Yes Hx Rheumatoid Arthritis: Yes - GASTROINTESTINAL Hx Gastritis: Yes - GENITOURINARY/GYNECOLOGICAL Hx Genitourinary Disorders: No - PSYCHIATRIC Hx Psychophysiologic Disorder: No Hx Emotional Abuse: No Hx Physical Abuse: No Hx Substance Use: No - SURGICAL HISTORY Hx Appendectomy: Yes Hx Cataract Extraction: Yes Hx Coronary Stent: Yes (11/2006 & 2009) Hx Hysterectomy: Yes Hx Mastectomy: Yes (Left partial mastectomy) - ANESTHESIA Hx Anesthesia: Yes Hx Anesthesia Reactions: No Hx Malignant Hyperthermia: No Meds Allergies/Adverse Reactions: Allergies Allergy/AdvReac Type Severity Reaction Status Date / Time iodine AdvReac RASH Verified 08/24/17 16:41 Physical Exam - Constitutional Appears: No Acute Distress - Head Exam Head Exam: ATRAUMATIC, NORMAL INSPECTION, NORMOCEPHALIC - Eye Exam Eye Exam: EOMI, Normal appearance Pupil Exam: NORMAL ACCOMODATION - ENT Exam ENT Exam: Normal Exam, Normal External Ear Exam, Normal Oropharynx - Neck Exam Neck exam: Positive for: Full Rom, Normal Inspection. Negative for: Lymphadenopathy, Tenderness - Respiratory Exam Respiratory Exam: Clear to Auscultation Bilateral. absent: Rales, Rhonchi, Wheezes - Cardiovascular Exam Cardiovascular Exam: REGULAR RHYTHM, RRR, +S1, +S2. absent: Gallop, JVD - GI/Abdominal Exam GI & Abdominal Exam: Normal Bowel Sounds, Soft. absent: Mass, Organomegaly, Tenderness - Rectal Exam Rectal Exam: Deferred - Extremities Exam Extremities exam: Positive for: full ROM, normal inspection Additional comments: 1+ bilateral lower leg edema - Back Exam Back exam: NORMAL INSPECTION. absent: CVA tenderness (L), CVA tenderness (R) - Neurological Exam Neurological exam: Alert, CN II-XII Intact, Oriented x3, Reflexes Normal - Psychiatric Exam Psychiatric exam: Normal Affect, Normal Mood - Skin Skin Exam: Dry, Intact, Normal Color, Warm Results - Vital Signs Recent Vital Signs: Last Vital Signs Temp 98.5 F 02/01/18 18:34 Pulse 67 02/01/18 19:22 Resp 18 02/01/18 18:34 BP 117/55 L 02/01/18 18:34 Pulse Ox 99 02/01/18 19:22 - Labs Result Diagrams: 02/01/18 18:57 02/01/18 18:57 Labs: Laboratory Results - last 24 hr 02/01/18 02/01/18 02/01/18 18:55 18:57 18:57 WBC 7.8 RBC 4.62 Hgb 14.4 Hct 42.4 MCV 91.7 MCH 31.2 H MCHC 34.0 RDW 13.5 Plt Count 243 MPV 9.4 Neut % (Auto) 60.8 Lymph % (Auto) 29.5 [place] % (Auto) 7.5 Eos % (Auto) 2.0 Baso % (Auto) 0.2 Neut # (Auto) 4.7 Lymph # (Auto) 2.3 [place] # (Auto) 0.6 Eos # (Auto) 0.2 Baso # (Auto) 0.0 PT INR APTT Sodium 141 Potassium 4.0 Chloride 105 Carbon Dioxide 28 Anion Gap 12 BUN 17 Creatinine 0.9 Est GFR ( Amer) > 60 Est GFR (Non-Af Amer) > 60 POC Glucose (mg/dL) 149 H Random Glucose 161 H Calcium 9.5 Total Bilirubin 0.6 AST 25 ALT 32 Alkaline Phosphatase 76 Troponin I < 0.0120 NT-Pro-B Natriuret Pep 164 Total Protein 7.5 Albumin 4.1 Globulin 3.5 Albumin/Globulin Ratio 1.2 02/01/18 18:57 WBC RBC Hgb Hct MCV MCH MCHC RDW Plt Count MPV Neut % (Auto) Lymph % (Auto) [place] % (Auto) Eos % (Auto) Baso % (Auto) Neut # (Auto) Lymph # (Auto) [place] # (Auto) Eos # (Auto) Baso # (Auto) PT 11.5 INR 1.0 APTT 29.1 Sodium Potassium Chloride Carbon Dioxide Anion Gap BUN Creatinine Est GFR ( Amer) Est GFR (Non-Af Amer) POC Glucose (mg/dL) Random Glucose Calcium Total Bilirubin AST ALT Alkaline Phosphatase Troponin I NT-Pro-B Natriuret Pep Total Protein Albumin Globulin Albumin/Globulin Ratio - Impressions Impression: Sinus Rhythm with sinus Arrhythmia 67/min LAD - Imaging and Cardiology Chest x-ray Status: Image reviewed by me Additional comment: No infiltrate Assessment & Plan - Assessment and Plan (Free Text) Assessment: #. Chest Pain #. DM II #. CAD #.Gastritis #. Asthma Plan: 77 years old female with hx of Left Breast Cancer s/p Mastectomy, DM II, HTN, CAD with coronary stents who comes with one day of recurrent episodes of left side chest pain today with spontaneous relief. The pain is dull,located below the left breast, radiating to the Back and not relieved with bronchodilators. #. Chest Pain r/o ACS - Consult Dr Pond Cardiology - ECHO - Serial troponin - Serial EKG - Lipid panel - ASA #. DM II - Insulin lispro sliding scle according to accucheck - Levemir - Glimepiride - HbA1c #. CAD. As per hx patient has coronary stents - Dr pond on consult - ASA - Lipid panel #.Gastritis - Pantoprazole #. Asthma stable -Duoneb #. DVT prophylaxis with Lovenox Code Status: Full - Date & Time Date: 02/01/18 Time: 20:45
[2018-02-01] MEDS ORDERED: Insulin Detemir 100 Units/ml Inj SC SCH (22:00)
[2018-02-01] MEDS: Insulin Lispro (humaLOG) 100 Units/ml Inj SC SCH (23:25)
[2018-02-01] MEDS ORDERED: Pantoprazole 40 mg EC Tab PO ONE (23:29)
[2018-02-01] MEDS: Pantoprazole 40 mg EC Tab PO SCH (23:33)
[2018-02-02 05:18] LABS: HDL CHOLESTEROL 31 MG/DL (30-70)
[2018-02-02 05:28] LABS: LDL CHOLESTEROL 109 mg/dL (0-129)
[2018-02-02] MEDS ORDERED: Insulin Regular 100 units/ml ONE (08:15)
[2018-02-02] MEDS ORDERED: Albuterol-Ipratrop 3 mg / 0.5 (3 ml) UD ONE (08:21)
[2018-02-02] MEDS: Albuterol-Ipratrop 3 mg / 0.5 (3 ml) UD INH SCH ×2 (08:21→19:15)
--- NOTE | 2018-02-02 08:42 | RAD ---
Date of service: 02/01/2018 HISTORY: SOB COMPARISON: Portable chest 07/10/2017. TECHNIQUE: Chest PA and lateral FINDINGS: LUNGS: No active pulmonary disease. Improved inspiratory volume noted. PLEURA: No significant pleural effusion identified. No pneumothorax apparent. CARDIOVASCULAR: Stable cardiomegaly no pulmonary vascular congestion. OSSEOUS STRUCTURES: No significant abnormalities. VISUALIZED UPPER ABDOMEN: Normal. OTHER FINDINGS: None. IMPRESSION: No interval acute cardiopulmonary disease. Improved inspiratory volume. Stable cardiomegaly.
[2018-02-02] MEDS ORDERED: Enoxaparin 40 mg Syringe SC SCH (09:00)
--- NOTE | 2018-02-02 09:44 | CARD ---
APPROVED REPORT Date of service: 02/01/2018 <Conclusion> Normal sinus rhythm with sinus arrhythmia Left axis deviation Minimal voltage criteria for LVH, may be normal variant Abnormal ECG
[2018-02-02] MEDS: Insulin Lispro (humaLOG) 100 Units/ml Inj SC SCH ×2 (12:27→16:27)
[2018-02-02] MEDS: Pantoprazole 40 mg EC Tab PO SCH (12:34)
[2018-02-02] MEDS: GlipiZIDE 10 mg SR Tab PO SCH ×2 (13:28→16:27)
[2018-02-02 15:46] VITALS: BP 121/61; PULSE 64; RESP 18; TEMP 98.7; O2SAT 99
--- NOTE | 2018-02-02 18:29 | CP.PCM.CON ---
History of Present Illness - History of Present Illness History of Present Illness: THE PATIENT IS A 77 YEAR OLD FEMALE ADMITTED YESTERDAY FOR ATYPICAL SHARP LEFT SIDED CHEST PAIN. SHE IS CHEST PAIN FREE AT THE PRESENT TIME. SHE HAS A HISTORY OF A LEFT MASTECTOMY, CAD, HYPERTENSION, DM, RA, ASTHMA AND SLEEP APNEA. SHE IS NOT AN EXACT HISTORIAN BUT STATES THAT SHE NEVER HAD AN [facility] BUT HAD STENT INSERTIONS ABOUT 2006 AND 2009. SHE ALSO CLAIMS THAT DR ENGLE DID A STRESS TEST ABOUT 30 MOS AGO THAT CAME OUT GOOD. DR ENGLE IS AWAY AND I WAS ASKED TO SEE HER AND CLEAR HER FOR DISCHARGE. Past Patient History - Infectious Disease Hx of Infectious Diseases: None - Tetanus Immunizations Tetanus Immunization: Unknown - Past Medical History & Family History Past Medical History?: Yes - Past Social History Smoking Status: Never Smoked - CARDIAC Hx Cardia Arrhythmia: Yes Hx Hypercholesterolemia: Yes Hx Hypertension: Yes - PULMONARY Hx Asthma: Yes Hx Sleep Apnea: Yes (USES CPAP) - NEUROLOGICAL Hx Neurological Disorder: No - HEENT Hx HEENT Problems: Yes Hx Cataracts: Yes - RENAL Hx Chronic Kidney Disease: No - ENDOCRINE/METABOLIC Hx Endocrine Disorders: Yes Hx Diabetes Mellitus Type 2: Yes - HEMATOLOGICAL/ONCOLOGICAL Hx Blood Disorders: No Hx Human Immunodeficiency Virus (HIV): No - INTEGUMENTARY Hx Dermatological Problems: No - MUSCULOSKELETAL/RHEUMATOLOGICAL Hx Musculoskeletal Disorders: Yes Hx Arthritis: Yes Hx Falls: No Hx Rheumatoid Arthritis: Yes - GASTROINTESTINAL Hx Gastrointestinal Disorders: Yes Hx Gastritis: Yes - GENITOURINARY/GYNECOLOGICAL Hx Genitourinary Disorders: No - PSYCHIATRIC Hx Psychophysiologic Disorder: No Hx Emotional Abuse: No Hx Physical Abuse: No Hx Substance Use: No - SURGICAL HISTORY Hx Appendectomy: Yes Hx Cataract Extraction: Yes Hx Coronary Stent: Yes (11/2006 & 2009) Hx Hysterectomy: Yes Hx Mastectomy: Yes (Left partial mastectomy) - ANESTHESIA Hx Anesthesia: Yes Hx Anesthesia Reactions: No Hx Malignant Hyperthermia: No Meds Allergies/Adverse Reactions: Allergies Allergy/AdvReac Type Severity Reaction Status Date / Time iodine AdvReac RASH Verified 08/24/17 16:41 - Medications Medications: Current Medications Acetaminophen (Tylenol 325mg Tab) 650 mg PO Q6 PRN PRN Reason: Pain, Mild (1-3) Albuterol/Ipratropium (Duoneb 3 Mg/0.5 Mg (3 Ml) Ud) 3 ml INH RQ6 GERARDO Last Admin: 02/02/18 08:21 Dose: 3 ml Aspirin (Ecotrin) 81 mg PO DAILY [facility] Last Admin: 02/02/18 12:31 Dose: 81 mg Atenolol (Tenormin) 25 mg PO DAILY [facility] Last Admin: 02/02/18 12:29 Dose: 25 mg Enalapril Maleate (Vasotec) 10 mg PO DAILY [facility] Last Admin: 02/02/18 12:30 Dose: 10 mg Enoxaparin Sodium (Lovenox) 40 mg SC DAILY [facility] PRN Reason: Protocol Last Admin: 02/02/18 12:30 Dose: 40 mg Glipizide (Glucotrol Xl) 10 mg PO BIDWM [facility] Last Admin: 02/02/18 16:27 Dose: 10 mg Insulin Detemir (Levemir) 50 units SC HS [facility] Last Admin: 02/01/18 23:37 Dose: 50 units Insulin Human Lispro (Humalog) 0 units SC ACHS [facility] PRN Reason: Protocol Last Admin: 02/02/18 16:27 Dose: 283 u Ketorolac Tromethamine (Toradol) 15 mg IVP Q6 PRN PRN Reason: Other Pantoprazole Sodium (Protonix Ec Tab) 40 mg PO DAILY [facility] Last Admin: 02/02/18 12:34 Dose: 40 mg Physical Exam - Respiratory Exam Respiratory Exam: Clear to Auscultation Bilateral - Cardiovascular Exam Cardiovascular Exam: REGULAR RHYTHM, +S1, +S2 - Extremities Exam Extremities exam: Positive for: normal inspection - Additional Findings Additional findings: EKG NSR TROPONINS NEGATIVE Results - Vital Signs Recent Vital Signs: Last Vital Signs Temp 98.7 F 02/02/18 15:45 Pulse 64 02/02/18 15:45 Resp 18 02/02/18 15:45 BP 121/61 02/02/18 15:45 Pulse Ox 99 02/02/18 15:45 - Labs Result Diagrams: 02/01/18 18:57 02/01/18 18:57 Labs: Laboratory Results - last 24 hr 02/01/18 02/01/18 02/01/18 18:55 18:57 18:57 WBC 7.8 RBC 4.62 Hgb 14.4 Hct 42.4 MCV 91.7 MCH 31.2 H MCHC 34.0 RDW 13.5 Plt Count 243 MPV 9.4 Neut % (Auto) 60.8 Lymph % (Auto) 29.5 [place] % (Auto) 7.5 Eos % (Auto) 2.0 Baso % (Auto) 0.2 Neut # (Auto) 4.7 Lymph # (Auto) 2.3 [place] # (Auto) 0.6 Eos # (Auto) 0.2 Baso # (Auto) 0.0 PT INR APTT D-Dimer, Quantitative Sodium 141 Potassium 4.0 Chloride 105 Carbon Dioxide 28 Anion Gap 12 BUN 17 Creatinine 0.9 Est GFR ( Amer) > 60 Est GFR (Non-Af Amer) > 60 POC Glucose (mg/dL) 149 H Random Glucose 161 H Hemoglobin A1c Calcium 9.5 Total Bilirubin 0.6 AST 25 ALT 32 Alkaline Phosphatase 76 Troponin I < 0.0120 NT-Pro-B Natriuret Pep 164 Total Protein 7.5 Albumin 4.1 Globulin 3.5 Albumin/Globulin Ratio 1.2 Triglycerides Cholesterol LDL Cholesterol Direct HDL Cholesterol 02/01/18 02/01/18 02/01/18 18:57 22:31 22:55 WBC RBC Hgb Hct MCV MCH MCHC RDW Plt Count MPV Neut % (Auto) Lymph % (Auto) [place] % (Auto) Eos % (Auto) Baso % (Auto) Neut # (Auto) Lymph # (Auto) [place] # (Auto) Eos # (Auto) Baso # (Auto) PT 11.5 INR 1.0 APTT 29.1 D-Dimer, Quantitative 391 H Sodium Potassium Chloride Carbon Dioxide Anion Gap BUN Creatinine Est GFR ( Amer) Est GFR (Non-Af Amer) POC Glucose (mg/dL) 197 H Random Glucose Hemoglobin A1c Calcium Total Bilirubin AST ALT Alkaline Phosphatase Troponin I NT-Pro-B Natriuret Pep Total Protein Albumin Globulin Albumin/Globulin Ratio Triglycerides Cholesterol LDL Cholesterol Direct HDL Cholesterol 02/02/18 02/02/18 02/02/18 04:30 04:30 08:02 WBC RBC Hgb Hct MCV MCH MCHC RDW Plt Count MPV Neut % (Auto) Lymph % (Auto) [place] % (Auto) Eos % (Auto) Baso % (Auto) Neut # (Auto) Lymph # (Auto) [place] # (Auto) Eos # (Auto) Baso # (Auto) PT INR APTT D-Dimer, Quantitative Sodium Potassium Chloride Carbon Dioxide Anion Gap BUN Creatinine Est GFR ( Amer) Est GFR (Non-Af Amer) POC Glucose (mg/dL) 178 H Random Glucose Hemoglobin A1c 10.0 H Calcium Total Bilirubin AST ALT Alkaline Phosphatase Troponin I < 0.0120 NT-Pro-B Natriuret Pep Total Protein Albumin Globulin Albumin/Globulin Ratio Triglycerides 225 H D Cholesterol 202 H LDL Cholesterol Direct 109 HDL Cholesterol 31 02/02/18 02/02/18 10:57 12:06 WBC RBC Hgb Hct MCV MCH MCHC RDW Plt Count MPV Neut % (Auto) Lymph % (Auto) [place] % (Auto) Eos % (Auto) Baso % (Auto) Neut # (Auto) Lymph # (Auto) [place] # (Auto) Eos # (Auto) Baso # (Auto) PT INR APTT D-Dimer, Quantitative Sodium Potassium Chloride Carbon Dioxide Anion Gap BUN Creatinine Est GFR ( Amer) Est GFR (Non-Af Amer) POC Glucose (mg/dL) 314 H Random Glucose Hemoglobin A1c Calcium Total Bilirubin AST ALT Alkaline Phosphatase Troponin I < 0.0120 NT-Pro-B Natriuret Pep Total Protein Albumin Globulin Albumin/Globulin Ratio Triglycerides Cholesterol LDL Cholesterol Direct HDL Cholesterol Assessment & Plan - Assessment and Plan (Free Text) Assessment: ATYPICAL SHARP LEFT CHEST PAIN-PAIN FREE NOW AND TROPONINS ARE NORMAL CAD HISTORY HYPERTENSION DM Plan: THE PATIENT IS ON ASPIRIN, LOVENOX, ATENOLOL AND ENALAPRIL OK TO DISCHARGE FROM CARDIAC [facility] RECOMMEND OUT PATIENT STRESS TEST BY DR ENGLE
--- NOTE | 2018-02-02 18:31 | CP.PCM.DIS ---
Provider - Provider Date of Admission: 02/01/18 20:34 Attending physician: Vince Bush Primary care physician: Dr. Panda Consults: cardiology consult Time Spent in preparation of Discharge (in minutes): 15 Hospital Course - Lab Results Lab Results: Most Recent Lab Values WBC 7.8 K/uL (4.8-10.8) 02/01/18 18:57 RBC 4.62 Mil/uL (3.80-5.20) 02/01/18 18:57 Hgb 14.4 g/dL (12.0-16.0) 02/01/18 18:57 Hct 42.4 % (34.0-47.0) 02/01/18 18:57 MCV 91.7 fl (81.0-99.0) 02/01/18 18:57 MCH 31.2 pg (27.0-31.0) H 02/01/18 18:57 MCHC 34.0 g/dL (33.0-37.0) 02/01/18 18:57 RDW 13.5 % (11.5-14.5) 02/01/18 18:57 Plt Count 243 K/uL (130-400) 02/01/18 18:57 MPV 9.4 fl (7.2-11.7) 02/01/18 18:57 Neut % (Auto) 60.8 % (50.0-75.0) 02/01/18 18:57 Lymph % (Auto) 29.5 % (20.0-40.0) 02/01/18 18:57 [place] % (Auto) 7.5 % (0.0-10.0) 02/01/18 18:57 Eos % (Auto) 2.0 % (0.0-4.0) 02/01/18 18:57 Baso % (Auto) 0.2 % (0.0-2.0) 02/01/18 18:57 Neut # (Auto) 4.7 K/uL (1.8-7.0) 02/01/18 18:57 Lymph # (Auto) 2.3 K/uL (1.0-4.3) 02/01/18 18:57 [place] # (Auto) 0.6 K/uL (0.0-0.8) 08/26/18 18:57 Eos # (Auto) 0.2 K/uL (0.0-0.7) 02/01/18 18:57 Baso # (Auto) 0.0 K/uL (0.0-0.2) 02/01/18 18:57 PT 11.5 Seconds (9.8-13.1) 02/01/18 18:57 INR 1.0 02/01/18 18:57 APTT 29.1 Seconds (25.6-37.1) 02/01/18 18:57 D-Dimer, Quantitative 391 ng/mlDDU (0-230) H 02/01/18 22:31 Sodium 141 mmol/l (132-148) 02/01/18 18:57 Potassium 4.0 MMOL/L (3.6-5.0) 02/01/18 18:57 Chloride 105 mmol/L (98-107) 02/01/18 18:57 Carbon Dioxide 28 mmol/L (22-30) 02/01/18 18:57 Anion Gap 12 (10-20) 02/01/18 18:57 BUN 17 mg/dl (7-17) 02/01/18 18:57 Creatinine 0.9 mg/dl (0.7-1.2) 02/01/18 18:57 Est GFR ( Amer) > 60 02/01/18 18:57 Est GFR (Non-Af Amer) > 60 02/01/18 18:57 POC Glucose (mg/dL) 314 mg/dL (65-110) H 02/02/18 12:06 Random Glucose 161 mg/dL (65-105) H 02/01/18 18:57 Hemoglobin A1c 10.0 % (4.2-6.5) H 02/02/18 04:30 Calcium 9.5 mg/dL (8.4-10.2) 02/01/18 18:57 Total Bilirubin 0.6 mg/dl (0.2-1.3) 02/01/18 18:57 AST 25 U/L (14-36) 02/01/18 18:57 ALT 32 U/L (9-52) 02/01/18 18:57 Alkaline Phosphatase 76 U/L (38-126) 02/01/18 18:57 Troponin I < 0.0120 ng/mL (0.00-0.120) 02/02/18 10:57 NT-Pro-B Natriuret Pep 164 pg/ml (0-900) 02/01/18 18:57 Total Protein 7.5 G/DL (6.3-8.2) 02/01/18 18:57 Albumin 4.1 g/dL (3.5-5.0) 02/01/18 18:57 Globulin 3.5 gm/dL (2.2-3.9) 02/01/18 18:57 Albumin/Globulin Ratio 1.2 (1.0-2.1) 02/01/18 18:57 Triglycerides 225 mg/DL (0-149) H D 02/02/18 04:30 Cholesterol 202 mg/dL (0-199) H 02/02/18 04:30 LDL Cholesterol Direct 109 mg/dL (0-129) 02/02/18 04:30 HDL Cholesterol 31 MG/DL (30-70) 02/02/18 04:30 - Hospital Course Hospital Course: 77 years old female with hx of Left Breast Cancer s/p Mastectomy, DM II, HTN, CAD with coronary stents came with one day of recurrent episodes of left side chest pain today with spontaneous relief. The pain is dull,located below the left breast, radiating to the Back and not relieved with bronchodilators. Patient placed under observation in telemetry for chest pain rule out ACS. Troponins were cycled and were all negative and EKG showed no St-T wave changes ACS ruled out Cardiology was consulted and cleared patient recommending stress test as out patient . patient currently is hemodynamically stable, chest pain free Will d/c patient home in stable conditions. Follow up with PMD and Dr Cooper 1.Atypical Chest Pain ACS ruled out Most likely muskuloskeletal pain ACS Stress test as out patient recommended 2. DM II uncontrolled hgbA1c 10 Insulin lispro sliding scle according to accucheck Levemir Glimepiride 3. CAD. stress test as out patient As per hx patient has coronary stents 4.Gastritis Pantoprazole 5. Asthma stable Duoneb 6. Dyslipidemia on statins 7. HTN continue home meds enalapril and Atenolol Discharge Exam - Head Exam Head Exam: ATRAUMATIC, NORMAL INSPECTION, NORMOCEPHALIC - Eye Exam Eye Exam: PERRL Pupil Exam: NORMAL ACCOMODATION - ENT Exam ENT Exam: Normal Exam - Neck Exam Neck exam: Full Rom, Normal Inspection - Respiratory Exam Respiratory Exam: Clear to PA & Lateral, NORMAL BREATHING PATTERN. absent: Respiratory Distress - Cardiovascular Exam Cardiovascular Exam: REGULAR RHYTHM, +S1. absent: JVD - GI/Abdominal Exam GI & Abdominal Exam: Normal Bowel Sounds, Soft. absent: Distended, Guarding, Rebound, Tenderness - Rectal Exam Rectal Exam: Deferred - Extremities Exam Extremities exam: normal capillary refill, normal inspection, pedal pulses present - Back Exam Back exam: NORMAL INSPECTION - Neurological Exam Neurological exam: Alert, CN II-XII Intact, Oriented x3 - Psychiatric Exam Psychiatric exam: Normal Affect - Skin Skin Exam: Dry, Warm Discharge Plan - Follow Up Plan Condition: STABLE Disposition: HOME/ ROUTINE Patient education suggested?: Yes Instructions: Chest Pain (DC) Referrals: Marlo Cooper MD [Staff Provider] -
--- NOTE | 2018-02-02 18:51 | CARD ---
APPROVED REPORT Date of service: 02/02/2018 EXAM: Two-dimensional and M-mode echocardiogram with Doppler and color Doppler. Other Information Quality : FairRhythm : NSR Technically limited study due to Poor Echo Window,pt.has had chest surgery. INDICATION Chest Pain 2D DIMENSIONS IVSd1.09 (0.7-1.1cm)LVDd4.40 (3.9-5.9cm) LVOT Diameter2.23 (1.8-2.4cm)PWd1.10 (0.7-1.1cm) IVSs1.42 (0.8-1.2cm)LVDs3.28 (2.5-4.0cm) FS (%) 22.9 %PWs1.50 (0.8-1.2cm) M-Mode DIMENSIONS Left Atrium (MM)3.67 (2.5-4.0cm)Aortic Root3.24 (2.2-3.7cm) Aortic Cusp Exc.1.89 (1.5-2.0cm) Aortic Valve AoV Peak Whfvgbby382.8cm/sAoV VTI32.2cmAO Peak GR.8mmHg LVOT Peak Cmtvvfdh38.7cm/sLVOT VTI19.87cmAO Mean GR.4mmHg Mitral Valve MV E Yedgdtkb13.4cm/sMV DECEL [id number] A Yhxocmav95.2cm/s MV XUO48btT/A ratio1.3MVA (PHT)3.74cm2 TDI Lateral E' Peak V5.70cm/sMedial E' Peak V8.72cm/sE/Lateral E'12.7 E/Medial E'8.3 LEFT VENTRICLE The left ventricle is normal size. There is normal left ventricular wall thickness. The left ventricular ejection fraction is within the normal range. The Ejection Fraction is 60-65%. No regional wall motion abnormalities noted.. The left ventricular diastolic function is normal. No left ventricle thrombus noted on this study. There is no ventricular septal defect visualized. There is no mass noted in the left ventricle. RIGHT VENTRICLE The right ventricle is normal size. There is normal right ventricular wall thickness. The right ventricular systolic function is normal. ATRIA The left atrium size is normal. The right atrium size is normal. The interatrial septum is intact with no evidence for an atrial septal defect. AORTIC VALVE The aortic valve is normal in structure. No aortic regurgitation is present. There is no aortic valvular stenosis. MITRAL VALVE The mitral valve is normal in structure. There is no mitral valve stenosis. There is trivial mitral valve regurgitation noted. TRICUSPID VALVE The tricuspid valve is normal in structure. There is no tricuspid valve regurgitation noted. PULMONIC VALVE The pulmonary valve is normal in structure. There is no pulmonic valvular regurgitation. GREAT VESSELS The aortic root is normal in size. The ascending aorta is normal in size. The pulmonary artery is normal. The IVC is normal in size and collapses >50% with inspiration. PERICARDIAL EFFUSION There is no pericardial effusion. <Conclusion> Essentially normal transthoracic echocardiogram. The Ejection Fraction is 60-65%.
== END 2018-02-02 19:25 | disposition home or self-care (01) ==
LOC: H.ER 18:15 → H.ERHOLD 20:34 → H.TEL 02-02 08:56
PROVIDERS: ADMIT Internal Medicine; ATTEND Internal Medicine
DX: R07.89 Other chest pain (principal); E11.65 Type 2 diabetes mellitus with hyperglycemia; E78.00 Pure hypercholesterolemia, unspecified; E78.5 Hyperlipidemia, unspecified; G47.30 Sleep apnea, unspecified; I10 Essential (primary) hypertension; I25.10 Atherosclerotic heart disease of native coronary artery without angina pectoris; J45.909 Unspecified asthma, uncomplicated; K29.70 Gastritis, unspecified, without bleeding; M06.9 Rheumatoid arthritis, unspecified; Z79.4 Long term (current) use of insulin; Z85.3 Personal history of malignant neoplasm of breast; Z87.891 Personal history of nicotine dependence; Z90.12 Acquired absence of left breast and nipple; Z90.49 Acquired absence of other specified parts of digestive tract; Z90.710 Acquired absence of both cervix and uterus; Z95.5 Presence of coronary angioplasty implant and graft; H26.9 Unspecified cataract; I49.9 Cardiac arrhythmia, unspecified; M19.90 Unspecified osteoarthritis, unspecified site; Z79.84 Long term (current) use of oral hypoglycemic drugs; Z79.899 Other long term (current) drug therapy
CPT/HCPCS: 71046; 80053; 80061; 82948; 83036; 83880; 84484; 85025; 85378; 85610; 85730; 93005; 93306; 96372; 99285; G0378; J1650